=== PATIENT | female | born 1950 | race Caucasian/White ===

== ENCOUNTER → 2017-11-29 10:44 | Outpatient (CLI) | payer MEDICARE, SELFPAY ==
--- NOTE | 2017-11-29 | DI.MG.S_ITS ---
BILATERAL DIGITAL SCREENING MAMMOGRAM 3D/2D WITH CAD: 11/29/2017 Comparison is made to exams dated: 04/17/2016 mammogram, 04/05/2015 mammogram, and 03/20/2014 mammogram - [facility]. There are scattered fibroglandular elements in both breasts. Current study was also evaluated with a Computer Aided Detection (CAD) system. No significant masses, calcifications, or other findings are seen in either breast. There has been no significant interval change. IMPRESSION: NEGATIVE There is no mammographic evidence of malignancy. A 1 year screening mammogram is recommended.(11/30/2018) This exam was interpreted at Station ID: [id number]. NOTE: For mammograms, a report in lay terms will be sent to the patient. Approximately 15% of breast malignancies will not be visualized mammographically. In the management of a palpable breast mass, a negative mammogram must not discourage biopsy of a clinically suspicious lesion. Electronically Signed By: Bjorn mckinney/chelsie:11/29/2017 11:34:34 letter sent: Normal Exam ACR BI-RADS Category 1: Negative [id number]
== END ==
PROVIDERS: PCP Internal Medicine; Visit Provider Internal Medicine
DX: Z12.31 Encounter for screening mammogram for malignant neoplasm of breast (principal)
CPT/HCPCS: 77063; 77067

== ENCOUNTER → 2018-10-01 08:59 | Outpatient (CLI) | payer OTHER, SELFPAY ==
--- NOTE | 2018-10-01 | DI.US.S_ITS ---
PROCEDURE: US CAROTID DOPPLER BI INDICATIONS: HYPERLIPIDEMIA, UNSPECIFIED TECHNIQUE: Color and pulse Doppler interrogation was performed of both carotid systems, with image documentation and velocity measurements. COMPARISON: None. FINDINGS: Stenosis calculations are based on SRU (Society of Radiologists in Ultrasound) criteria. Right side: Brachial blood pressure: 127/78 mm Hg. Common carotid artery peak systolic velocity: 65 cm/sec. Internal carotid artery peak systolic velocity: 80 cm/sec. Internal carotid artery end diastolic velocity: 36 cm/sec. External carotid artery peak systolic velocity: 97 cm/sec. ICA/CCA peak systolic ratio: 1.2. Miller scale imaging description: Mild plaque at the bifurcation Percent internal carotid artery stenosis: Less than 50%. Vertebral artery: Flow direction is antegrade. Left side: Brachial blood pressure: 119/83 mm Hg. Common carotid artery peak systolic velocity: 78 cm/sec. Internal carotid artery peak systolic velocity: 85 cm/sec. Internal carotid artery end diastolic velocity: 37 cm/sec. External carotid artery peak systolic velocity: 90 cm/sec. ICA/CCA peak systolic ratio: 1.1. Miller scale imaging description: Mild plaque in the bifurcation Percent internal carotid artery stenosis: Less than 50%. Vertebral artery: Flow direction is antegrade. IMPRESSION: Bilateral less than 50% ICA stenoses. Dictated by: Otoniel Guerrero M.D. on 10/01/2018 at 13:11 Approved by: Otoniel Guerrero M.D. on 10/01/2018 at 13:12
--- NOTE | 2018-10-01 | DI.US.S_ITS ---
PROCEDURE: US ARTERIAL DUPLEX LE BI INDICATIONS: HYPERLIPIDEMIA TECHNIQUE: Color and pulse Doppler interrogation was performed of both lower extremity arterial systems, with image documentation. COMPARISON: None. FINDINGS: Right lower extremity: Common femoral artery: 98 cm/sec, with triphasic flow. Deep femoral artery: 66 cm/sec, with triphasic flow. Proximal superficial femoral artery: 98 cm/sec, with triphasic flow. Mid superficial femoral artery: 75 cm/sec, with triphasic flow. Distal superficial femoral artery: 58 cm/sec, with triphasic flow. Popliteal artery: 49-50 cm/sec, with triphasic flow. Posterior tibial artery: 55-61 cm/sec, with triphasic flow. Anterior tibial artery/dorsalis pedis: 53-56 cm/sec, with triphasic flow. Miller-scale imaging description: Mild plaquing in common femoral artery. Left lower extremity: Common femoral artery: 115 cm/sec, with triphasic flow. Deep femoral artery: 58 cm/sec, with triphasic flow. Proximal superficial femoral artery: 82 cm/sec, with triphasic flow. Mid superficial femoral artery: Please see cm/sec, with triphasic flow. Distal superficial femoral artery: 60 cm/sec, with triphasic flow. Popliteal artery: 46-57 cm/sec, with triphasic flow. Posterior tibial artery: 47-72 cm/sec, with triphasic flow. Anterior tibial artery/dorsalis pedis: 61-68 cm/sec, with triphasic flow. Miller-scale imaging description: Minimal plaquing. IMPRESSION: No hemodynamic significant stenosis in lower extremity arteries. Dictated by: Dev Ernst M.D. on 10/01/2018 at 15:59 Approved by: Dev Ernst M.D. on 10/01/2018 at 16:03
[2018-10-01 11:07] LABS: Add Manual Diff / Slide Review NO; Basophils Absolute Auto 0 /uL (0-100); Basophils Percent Auto 0.9 % (0-2); Eosinophils Absolute Auto 100 /uL (0-450); Eosinophils Percent Auto 2.4 % (2-4); Hemoglobin 14.3 g/dL (12.0-16.0); Lymphocytes Absolute Auto 900 /uL (1100-4500); Lymphocytes Percent Auto 17.2 % (25-40); Mean Corpuscular HGB Conc 33.1 % (30-36); Mean Corpuscular Hemoglobin 28.9 PG (26-34); Mean Corpuscular Volume 87.3 fL (80-100); Monocytes Absolute Auto 400 /uL (0-900); Monocytes Percent Auto 7.2 % (3-14); Neutrophils Absolute Auto 3900 /uL (1500-7000); Neutrophils Percent Auto 72.3 % (50-75); Platelet Count 257 X10^3/uL (150-400); Red Blood Cell Count 4.93 X10^6/uL (4.0-5.2); Red Cell Distribution Width 14.5 % (11.6-14.8); White Blood Cell Count 5.4 X10^3/uL (4.5-11.0)
[2018-10-01 11:41] LABS: Cholesterol 166 mg/dL (140-199); HDL Cholesterol 75 mg/dL (40-60); LDL Cholesterol Calculated 78 mg/dL (<100); Triglycerides 66 mg/dL (35-150)
[2018-10-01 12:22] LABS: Thyroid Stimulating Hormone 0.91 uIU/mL (0.47-4.68)
== END ==
PROVIDERS: PCP Internal Medicine; Visit Provider Student in an Organized Health Care Education/Training Program
DX: I65.23 Occlusion and stenosis of bilateral carotid arteries (principal); E78.5 Hyperlipidemia, unspecified; E03.9 Hypothyroidism, unspecified; I10 Essential (primary) hypertension
CPT/HCPCS: 36415; 80061; 84443; 85025; 93880; 93925

== ENCOUNTER → 2018-12-02 11:09 | Outpatient (CLI) | payer OTHER, SELFPAY ==
--- NOTE | 2018-12-02 | DI.MG.S_ITS ---
BILATERAL DIGITAL SCREENING MAMMOGRAM 3D/2D WITH CAD: 12/02/2018 CLINICAL: Routine screening. Comparison is made to exams dated: 11/29/2017 mammogram - [facility], 04/17/2016 mammogram, and 04/05/2015 mammogram - [facility]. There are scattered fibroglandular elements in both breasts. Current study was also evaluated with a Computer Aided Detection (CAD) system. No significant masses, calcifications, or other findings are seen in either breast. There has been no significant interval change. IMPRESSION: NEGATIVE There is no mammographic evidence of malignancy. A 1 year screening mammogram is recommended. This exam was interpreted at Station ID: [id number]. NOTE: For mammograms, a report in lay terms will be sent to the patient. Approximately 15% of breast malignancies will not be visualized mammographically. In the management of a palpable breast mass, a negative mammogram must not discourage biopsy of a clinically suspicious lesion. Electronically Signed By: Conrad weber/chelsie:12/02/2018 11:40:03 copy to: Irma Resendiz letter sent: Normal Exam ACR BI-RADS Category 1: Negative [id number]
== END ==
PROVIDERS: PCP Student in an Organized Health Care Education/Training Program; Visit Provider Student in an Organized Health Care Education/Training Program
DX: Z12.31 Encounter for screening mammogram for malignant neoplasm of breast (principal)
CPT/HCPCS: 77063; 77067

== ENCOUNTER 2019-05-09 14:30 | Outpatient (RCR) | payer OTHER, SELFPAY ==
--- NOTE | 2019-05-01 13:51 | ST.OPIE ---
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 She has experienced memory decline since 2017. She is being followed by Dr. Calvin in Neurology who has diagnosed her with mild cognitive impairment. Brain MRI from 01/20 revealed small chronic lacunar infarct in the right posterior morgan radiata and mild/moderate microvascular change in the white matter. Most recently, she had an episode of word finding difficulty and difficulty forming sentences which lasted ~ 20 minutes, but has since resolved and not recurred. She currently takes Donepezil, 10 mg daily for memory. [place] Language Language(s) Spoken in the [facility] [place] Occupational Status Occupation Status Retired Violinist Previous Therapy Previous Speech-Language Therapy No Oral Motor Examination Oral Motor Exam Completed No Subjective Subjective Courtney arrived on time accompanied by her who was not present during the evaluation per her request. - Formal Assessment Standardized Test Cognitive Linguistic Quick Test+ Administration Complete Results The CLQT+ is an individually administered criterion- referenced test designed to gain information about five cognitive domains (attention, memory, language, executive functions, and visuospatial skills) in adults with known or suspected neurological dysfunction. The following impairment severity ratings were obtained from testing: Attention - mild impairment Memory - moderate impairment Executive Functions - severe impairment Language - no impairment, within normal limits Composite Severity Rating - moderate impairment - Cognition Cognitive Assessment Cognitive Assessment Courtney scored 7 out of 8 possible points on the Personal Facts task. She incorrectly stated her age as 69. She scored 12 out of 12 possible points on Symbol cancellation task. During confrontation naming, she scored 10 out of 10 possible points. On the Clock Drawing task, she scored 11 out of 13 points. She lost two points for incorrect hand placement. On the Story Retelling task, she scored 9 out of 10 possible points. She had difficulty connecting alternating shapes in increasing size during the Symbol Trails tasks, scoring 3 out of 10 possible points. She scored 6 out of 9 possible points on Generative Naming. During the Design Memory task, she scored 2 out of 6 possible points. She was unable to complete either maze during the Mazes task, scoring 0 out of 8 possible points. On both mazes, she went down an incorrect path and was unable to back track demonstrating poor planning, foresight and mental flexibility. Before running out of time, she stated I can 't do this. Lastly, she scored 6 out of 13 on the Design Generation task with 1 copied design, 2 perseverated designs and 2 designs with greater or less than four lines. - Memory - Findings Cognitive/Memory Impressions Courtney presents with moderate cognitive impairments with deficits in attention, memory, executive functions and visuospatial skills with preserved language function aside from the episode of word finding difficulty mentioned above. She communicated with me effectively with no obvious word finding difficulty in conversation or during naming. Daily activities are largely unaffected per patient report; however, her reports she has difficulty planning and following plots on television shows. She drives, manages her medication with a pill box and cooks without difficulty. Her manages finances. Recommendations Recommendations Courtney was unable to state specific goals for therapy, but reports she would like help with improving her memory . She currently uses some external memory aids such as a pill box and grocery list, but she lost her calendar and relies on her to remember appointments. She also has difficulty remembering her medical history. She would benefit from cognitive rehabilitation with a focus on preservation of current level of function and compensation for deficits in order to improve daily functioning including general tasks and demands, self care and interpersonal interactions and relationships. Treatment Goals Short Term Goals Courtney will complete a functional cognitive rating scale in order to assist in evaluation of impact of current function on daily activities and participation as well as assist in goal planning. Courtney will demonstrate improved planning skills by identifying the time, materials, and location of an activity and organizing the plan into sequenced steps with out assistance. Courtney will demonstrate improved memory skills and use of strategies through implementation of external and internal memory aids for recalling functional information such as appointments, daily activities , conversations and medical history. Chcf Goals Courtney will report improvements in cognitive function and it's effect on daily activities and participation as measured by a functional cognitive rating scale. Total Time Full Evaluation Time 50
--- NOTE | 2019-05-09 15:46 | ST.OPTN ---
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 Treatment Note Start: 05/01/19 14:58 Freq: Status: Active Protocol: Document 05/09/19 15:38 TLC (Rec: 05/09/19 15:46 TLC [id number]) Speech Pathology Treatment Note Session Time Visit Start Time 14:30 Visit Stop Time 15:15 Total Visit Minutes 45 Visit Information Visit Number 2 Plan of Care Dates 05/01/19-07/30/19 Insurance Information [employer] Medicare Setting Treatment Setting Outpatient Care Visit Type Note Type Treatment Note Next Note Type Next Note Type Treatment Note General Information General Information 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 She has experienced memory decline since 2017. She is being followed by Dr. Calvin in Neurology who has diagnosed her with mild cognitive impairment. Brain MRI from 01/20 revealed small chronic lacunar infarct in the right posterior morgan radiata and mild/moderate microvascular change in the white matter. Most recently, she had an episode of word finding difficulty and difficulty forming sentences which lasted ~ 20 minutes, but has since resolved and not recurred. She currently takes Donepezil, 10 mg daily for memory. 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 Subjective Identification Type Name Observations/Patient Presentation Courtney arrived on time accompanied by her who was not present during the session. Chief Complaint(s) Cognitive Rehab Expectation/Goals: Patient Goals Unable to state goals, doesn't feel it is a big problem Objective Short Term Goals Courtney will complete a functional cognitive rating scale in order to assist in evaluation of impact of current function on daily activities and participation as well as assist in goal planning. Courtney will demonstrate improved planning skills by identifying the time, materials, and location of an activity and organizing the plan into sequenced steps with out assistance. Courtney will demonstrate improved memory skills and use of strategies through implementation of external and internal memory aids for recalling functional information such as appointments, daily activities , conversations and medical history. Shelter Goals Courtney will report improvements in cognitive function and it's effect on daily activities and participation as measured by a functional cognitive rating scale. Treatment Activities Completed the functional cognitive rating scale. Courtney demonstrates decreased insight into deficits rating all activities as fairly easy to do or can do with ease. Upon further discussion, she acknowledges memory impairments but does not feel they interfere with her daily activities or safety . I encouraged her to have a conversation with her regarding his view on the impact of her deficits. I provided verbal education regarding concern for safety given the severity ratings identified on the testing. She had significant difficulty completing tasks for alternating attention, requiring many repetitions. She demonstrated difficulty with topic maintenance in conversation, bringing up an unrelated topic after a serious discussion about her impairments. Assessment Patient Response to Treatment Poor Rehab Potential Poor Impairments Identified Cognitive-Linguistic Skills Assessment of Improvement Poor rehab potential given limited insight into deficits, despite my recommendation to continue with therapy given dx of cognitive impairment. Recommended she discuss results with her and they make a decision together about continuing therapy. Patient/Caregiver Understanding Fair Plan Amount of Therapy Recommended 2-3 Months Frequency of Treatment Once a Week Therapy Recommendations Continue with Current Program
--- NOTE | 2019-05-16 14:57 | ST.OPDS ---
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 She has experienced memory decline since 2016. She is being followed by Dr. Calvin in Neurology who has diagnosed her with mild cognitive impairment. Brain MRI from 01/20 revealed small chronic lacunar infarct in the right posterior morgan radiata and mild/moderate microvascular change in the white matter. Most recently, she had an episode of word finding difficulty and difficulty forming sentences which lasted ~ 20 minutes, but has since resolved and not recurred. She currently takes Donepezil, 10 mg daily for memory. 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 Subjective Observations/Patient Presentation Courtney requested to be discharged from speech therapy . Courtney has not scheduled any more appointments and does not plan on returning to speech therapy, as she thinks she no longer needs it. Chief Complaint(s) Cognitive Rehab Expectation/Goals: Patient Goals Unable to state goals, doesn't feel it is a big problem Objective Short Term Goals Courtney will complete a functional cognitive rating scale in order to assist in evaluation of impact of current function on daily activities and participation as well as assist in goal planning. -GOAL NOT MET; DISCHARGE Courtney will demonstrate improved planning skills by identifying the time, materials, and location of an activity and organizing the plan into sequenced steps with out assistance. -GOAL NOT MET ; DISCHARGE Courtney will demonstrate improved memory skills and use of strategies through implementation of external and internal memory aids for recalling functional information such as appointments, daily activities , conversations and medical history. -GOAL NOT MET; DISCHARGE Correction Goals Courtney will report improvements in cognitive function and it's effect on daily activities and participation as measured by a functional cognitive rating scale. -GOAL NOT MET; DISCHARGE Assessment Patient Response to Treatment Poor Rehab Potential Poor Impairments Identified Cognitive-Linguistic Skills Assessment of Improvement Previous treatment note stated : Poor rehab potential given limited insight into deficits, despite my recommendation to continue with therapy given dx of cognitive impairment. Recommended she discuss results with her and they make a decision together about continuing therapy. Plan Amount of Therapy Recommended No Further Therapy Frequency of Treatment No Further Therapy Therapy Recommendations Discharge from Speech Therapy Comment Patient requested to be discharged from speech therapy .
== END 2019-05-21 08:40 ==
LOC: SP 14:30
PROVIDERS: PCP Student in an Organized Health Care Education/Training Program; Referring Provider Psychiatry & Neurology Neurology; Visit Provider Psychiatry & Neurology Neurology
DX: G31.84 Mild cognitive impairment of uncertain or unknown etiology (principal); Z86.73 Personal history of transient ischemic attack (TIA), and cerebral infarction without residual deficits
CPT/HCPCS: 96125; 97129; 97130

== ENCOUNTER → 2019-07-17 17:03 | Outpatient (CLI) | payer OTHER, SELFPAY ==
--- NOTE | 2019-07-17 | DI.RAD.S_ITS ---
PROCEDURE: XR CHEST 2V INDICATIONS: Unspecified Rt Bundle-Branch Block TECHNIQUE: 2 views of the chest were acquired. COMPARISON: None. FINDINGS: Surgical changes and devices: None. Lungs and pleura: Lungs are clear. No pleural effusions or pneumothorax. Mediastinum: Mediastinal contours are normal. Heart size is normal. Bones and chest wall: No suspicious bony abnormalities. Soft tissues appear unremarkable. IMPRESSION: Normal for age, source of current cardiac arrhythmia symptoms is not seen. Dictated by: Willian Knapp M.D. on 07/18/2019 at 8:39 Approved by: Willian Knapp M.D. on 07/18/2019 at 8:39
== END ==
PROVIDERS: PCP Student in an Organized Health Care Education/Training Program; Referring Provider Student in an Organized Health Care Education/Training Program; Visit Provider Student in an Organized Health Care Education/Training Program
DX: I45.10 Unspecified right bundle-branch block (principal)
CPT/HCPCS: 71046

== ENCOUNTER → 2019-07-18 10:59 | Outpatient (ROUT) | payer OTHER, SELFPAY ==
[2019-07-18 11:33] LABS: Troponin I < 0.012 ng/mL (0.01-0.034)
== END ==
PROVIDERS: PCP Student in an Organized Health Care Education/Training Program; Visit Provider Student in an Organized Health Care Education/Training Program
DX: I45.10 Unspecified right bundle-branch block (principal); I48.91 Unspecified atrial fibrillation
CPT/HCPCS: 84484

== ENCOUNTER → 2019-08-15 08:03 | Outpatient (CLI) | payer OTHER, SELFPAY ==
--- NOTE | 2019-08-15 | DI.ECHO.S_ITS ---
[place] [facility]---------+ [facility] +---------+ : : [address] : : : : [id number] : : : : Phone: [phone]+ Echocardiogram Report + + :Name: PAYAM SIMMS Study Date: 08/15/2019 Height: 67 in : :[facility] Weight: 148 lb : : Gender: Female BSA: 1.8 m2 : :: 1950 Age: 68 yrs BP: 132/80 mmHg: :Reason For Study: AFIB,RBBB : : Performed By: Kali Womack : :Referring: ARTHUR MARTELL : + + Interpretation Summary The left ventricle is mildly dilated. The ejection fraction is estimated to be 55-60%. The right ventricle is normal in size and function. There is mild to moderate mitral regurgitation. The ascending aorta is mild-moderately enlarged. Asc Aorta Diam: 4.0 cm Mild atherosclerotic plaque(s) in the aortic arch. Procedure: A two-dimensional transthoracic echocardiogram with color flow and Doppler was performed. The study quality was technically good. There is no prior echocardiogram noted for this patient. The patient was in normal sinus rhythm during the exam. Left Ventricle: There is normal left ventricular wall thickness. The left ventricle is mildly dilated. There is no thrombus. The ejection fraction is estimated to be 55-60%. There are no focal wall motion abnormalities. MV E/A: 1.3 Med Peak E' Noah: 4.9 cm/sec E/E' med: 14.1. Right Ventricle: The right ventricle is normal in size and function. Atria: The left atrium is moderately dilated. The right atrium is moderately dilated. A prominent eustachian valve is noted. The interatrial septum is intact with no evidence for an atrial septal defect. Mitral Valve: The mitral valve leaflets are slightly calcified. There is mild to moderate mitral regurgitation. Aortic Valve: The aortic valve is trileaflet. The aortic valve opens well. There is no aortic valve stenosis. No aortic regurgitation is present. Tricuspid Valve: The tricuspid valve is normal in structure and function. There is trace tricuspid regurgitation. The right ventricular systolic pressure is estimated to be at least 19 mmHg based on an estimated right atrial pressure of 3 mm Hg. Pulmonic Valve: The pulmonic valve is normal in structure and function. There is trace pulmonic regurgitation. Great Vessels: The aortic root is normal size. The ascending aorta is mild- moderately enlarged. Mild atherosclerotic plaque(s) in the aortic arch. The pulmonary artery is normal size. The IVC is of normal diameter and collapses greater than 50% with a sniff. This suggests a low right atrial pressure of 3 mm Hg. Pericardium/ Pleura There is no pericardial effusion. There is no pleural effusion. MMode/2D Measurements & Calculations LVIDd: 5.5 cm LVOT diam: 2.3 cm LVIDs: 3.4 cm Ao root diam: 3.1 cm FS: 38.5 % asc Aorta Diam: 4.0 cm EPSS: 0.14 cm Ao Arch Diam (Prox Trans): 2.6 cm IVSd: 1.0 cm LVPWd: 0.99 cm LV pulliam. diameter/BSA (cm/m^2): 3.1 LV sys. diameter/BSA (cm/m^2): 1.9 LA dimension: 3.8 cm RA long axis: 5.4 cm LA A2 area: 30.7 cm2 RA area: 22.0 cm2 LA A4 area: 27.8 cm2 RA vol: 75.6 ml LA length (vol): 6.9 cm RA : 42.5 ml/m2 LA vol: 105.1 ml IVC diam: 2.0 cm LA vol index: 59.1 ml/m2 TAPSE: 2.0 cm Doppler Measurements & Calculations Ao V2 max: 144.0 cm/sec LVOT Max Noah: 109.9 cm/sec Ao V2 mean: 104.6 cm/sec LV V1 max P.8 mmHg Ao max P.3 mmHg LV V1 VTI: 25.5 cm Ao mean P.8 mmHg PREETHI(I,D): 3.4 cm2 Ao V2 VTI: 30.3 cm PREETHI(V,D): 3.1 cm2 sev ratio: 0.84 PREETHI indexed to BSA (cm^2/m^2): 1.9 MV E max noah: 69.7 cm/sec TR max noah: 199.8 cm/sec MV A max noah: 52.2 cm/sec TR max P.0 mmHg MV E/A: 1.3 PA V2 max: 81.9 cm/sec Med Peak E' Noah: 4.9 cm/sec PA V2 mean: 65.4 cm/sec E/E' med: 14.1 PA mean P.8 mmHg Lat Peak E' Noah: 7.8 cm/sec PA pr(Accel): 20.8 mmHg E/E' lat: 8.9 E/e' average: 11.5 MV dec time: 0.18 sec SV(LVOT): 104.2 ml Reading Physician:03:59 PM
== END ==
PROVIDERS: PCP Student in an Organized Health Care Education/Training Program; Referring Provider Student in an Organized Health Care Education/Training Program; Visit Provider Student in an Organized Health Care Education/Training Program
DX: I34.0 Nonrheumatic mitral (valve) insufficiency (principal); I70.0 Atherosclerosis of aorta; I48.91 Unspecified atrial fibrillation; I45.10 Unspecified right bundle-branch block
CPT/HCPCS: 93306

== ENCOUNTER → 2019-10-10 11:15 | Outpatient (CLI) | payer OTHER, SELFPAY ==
[2019-10-11 05:59] LABS: COVID19 Sendout Not Detected (Not Detect)
== END ==
PROVIDERS: PCP Student in an Organized Health Care Education/Training Program; Visit Provider Physician Assistant
DX: Z11.59 Encounter for screening for other viral diseases (principal)
CPT/HCPCS: 87635

== ENCOUNTER → 2019-10-13 10:41 | Outpatient (CLI) | payer OTHER, SELFPAY ==
--- NOTE | 2019-10-13 17:58 | DI.NM.S_ITS ---
DATE OF SERVICE: 10/13/2019 PROCEDURE: Exercise perfusion study. INDICATION: Paroxysmal AFib with underlying hypertension, right bundle branch block. RADIOPHARMACEUTICAL: 30.6 millicurie technetium-99m Myoview IV was injected at stress and 10.4 millicurie technetium-99m Myoview IV was injected at rest. CARDIAC STRESS: The patient underwent exercise perfusion study under the supervision of an attending staff. She walked on Yeison protocol for 7 minutes 45 seconds, achieved 94 percent of target heart rate, normal blood pressure response. Baseline EKG revealed sinus rhythm with partial right bundle branch block. During stress, there were no convincing ischemic changes. There were nonspecific ST changes. The patient also developed frequent PVCs and occasional ventricular couplets without any ventricular tachycardia. It was monomorphic PVCs. No significant anginal symptoms. RAW DATA: Breast shadow was seen. GATED STUDY: Stress LV ejection fraction is 74 percent and resting LV ejection fraction is 74 percent. Resting LV end-diastolic volume 128 mL. No transient ischemic dilatation. TID ratio 0.94, which is within normal limits. No obvious wall motion abnormalities seen. Lung/heart ratio 0.25, which is within normal limits. MYOCARDIAL PERFUSION: Stress supine images revealed a small to moderate-sized, moderately decreased perfusion of distal anterior wall, extending into the anterior apex, which got resolved during prone images suggestive of breast tissue attenuation artifact. CONCLUSION: I will call this study likely a normal myocardial perfusion study with evidence of breast tissue attenuation artifact, which got improved during prone images. Normal hemodynamic response. The patient achieved functional aerobic impairment of minus 7 percent. Fair exercise tolerance. Premature ventricular contractions during exercise without any sustained ventricular tachycardia. As far as perfusion scan is concerned, this is a low-risk myocardial perfusion scan. Courtney Barahona - CORY/britany/lauryn doc#: [id number]/job#: [id number] dd: 10/13/2019 17:05:00 dt: 10/13/2019 17:35:00 DICTATING MD/COPIES TO: Chelsy Torres MD COPIES MNE: CHANDNI;
== END ==
PROVIDERS: PCP Student in an Organized Health Care Education/Training Program; Referring Provider Nurse Practitioner; Visit Provider Nurse Practitioner
DX: I45.10 Unspecified right bundle-branch block (principal); I48.0 Paroxysmal atrial fibrillation; I10 Essential (primary) hypertension
CPT/HCPCS: 78452; 93017; A9502

== ENCOUNTER → 2019-12-04 10:53 | Outpatient (CLI) | payer OTHER, SELFPAY ==
--- NOTE | 2019-12-04 | DI.MG.S_ITS ---
BILATERAL DIGITAL SCREENING MAMMOGRAM 3D/2D WITH CAD: 12/04/2019 CLINICAL: Routine screening. Comparison is made to exams dated: 12/02/2018 mammogram, 11/29/2017 mammogram - [facility], and 04/05/2015 mammogram - [facility]. There are scattered fibroglandular elements in both breasts. Current study was also evaluated with a Computer Aided Detection (CAD) system. No significant masses, calcifications, or other findings are seen in either breast. There has been no significant interval change. IMPRESSION: NEGATIVE There is no mammographic evidence of malignancy. A 1 year screening mammogram is recommended. This exam was interpreted at Station ID: [id number]. NOTE: For mammograms, a report in lay terms will be sent to the patient. Approximately 15% of breast malignancies will not be visualized mammographically. In the management of a palpable breast mass, a negative mammogram must not discourage biopsy of a clinically suspicious lesion. Electronically Signed By: Jose farooq/chelsie:12/04/2019 16:23:18 copy to: Irma Resendiz letter sent: Normal Exam ACR BI-RADS Category 1: Negative [id number]
== END ==
PROVIDERS: PCP Student in an Organized Health Care Education/Training Program; Referring Provider Student in an Organized Health Care Education/Training Program; Visit Provider Student in an Organized Health Care Education/Training Program
DX: Z12.31 Encounter for screening mammogram for malignant neoplasm of breast (principal)
CPT/HCPCS: 77063; 77067

== ENCOUNTER 2020-01-13 19:08 | Observation (INO) | payer OTHER, SELFPAY ==
[2020-01-13 19:10] VITALS: BP 132/84; PULSE 47; RESP 18; TEMP 36.6; O2SAT 98
--- NOTE | 2020-01-13 19:14 | DI.CT.S_ITS ---
PROCEDURE: CT STROKE INDICATIONS: Stroke TECHNIQUE: Noncontrast 4.5 mm thick angled axial sections acquired from the foramen magnum to the vertex, with coronal reformats. For radiation dose reduction, the following was used: automated exposure control, adjustment of mA and/or kV according to patient size. COMPARISON: None. FINDINGS: Image quality: Excellent. CSF spaces: Basal cisterns are patent. No extra-axial fluid collections. The ventricles are symmetric in size and shape. Brain: No intracranial bleeds or masses. There is cerebral volume loss for age, with resultant ventricular and sulcal prominence. There are periventricular and deep white matter chronic small vessel ischemic changes. There is intracranial internal carotid artery atherosclerosis. Skull and face: Calvarium and visualized facial bones appear intact, without suspicious lesions. Sinuses: Visualized sinuses and mastoids are clear. IMPRESSION: 1. No acute intracranial process. The above findings were discussed with Dr. Priyanka Magdaleno on 01/13/2020 at 8:03 p.m. This study fulfills neurological imaging criteria for inclusion or exclusion of acute stroke therapies based on available published neurological guidelines. Dictated by: Nancy Duncan M.D. on 01/13/2020 at 20:03 Approved by: Nancy Duncan M.D. on 01/13/2020 at 20:06
[2020-01-13 19:28] LABS: Add Manual Diff / Slide Review NO; Basophils Absolute Auto 100 /uL (0-100); Basophils Percent Auto 0.9 % (0-2); Eosinophils Absolute Auto 200 /uL (0-450); Eosinophils Percent Auto 2.9 % (2-4); Hematocrit 40.8 % (36-46); Hemoglobin 13.8 g/dL (12.0-16.0); Lymphocytes Absolute Auto 1900 /uL (1100-4500); Lymphocytes Percent Auto 29.8 % (25-40); Mean Corpuscular HGB Conc 33.8 % (30-36); Mean Corpuscular Volume 88.7 fL (80-100); Monocytes Absolute Auto 600 /uL (0-900); Monocytes Percent Auto 9.9 % (3-14); Neutrophils Absolute Auto 3500 /uL (1500-7000); Neutrophils Percent Auto 56.5 % (50-75); Platelet Count 265 X10^3/uL (150-400); Red Cell Distribution Width 14.8 % (11.6-14.8); White Blood Cell Count 6.2 X10^3/uL (4.5-11.0)
[2020-01-13 19:34] LABS: INR 1.1 (0.9-1.3); Prothrombin Time 12.5 SECONDS (10.1-12.7)
--- NOTE | 2020-01-13 19:34 | PC.NURSE ---
spouse c/o confusion,trouble speaking,unsteady gait and memory loss.She was confused to place when I saw her and had some vision loss.These symptoms resolved spontaneously in approx. 4 minutes.
[2020-01-13 19:37] LABS: PTT Partial Thromboplastin Tim 37 SECONDS (26.4-36.2)
[2020-01-13 19:49] LABS: Alanine Aminotransferase 22 IU/L (<35); Albumin 4.4 g/dL (3.5-5.0); Albumin Globulin Ratio 1.7 (1.0-2.8); Alkaline Phosphatase 54 U/L (38-126); Aspartate Aminotransferase 27 IU/L (14-36); BUN Creatinine Ratio 18.5 (6-22); Bilirubin Total 0.6 mg/dL (0.2-1.3); Blood Urea Nitrogen 12 mg/dL (7-17); Calcium 9.1 mg/dL (8.4-10.2); Carbon Dioxide 29 mmol/L (22-32); Chloride 100 mmol/L (98-107); Estimated Glomerular Filt Rate > 60.0 mL/min (>60); Ethanol (ETOH) 212 mg/dL; Globulin 2.6 g/dL (1.7-4.1); Glucose 96 mg/dL (80-110); HEMOLYSIS < 15 (0-50); Potassium 3.5 mmol/L (3.4-5.1); Sodium 137 mmol/L (137-145)
[2020-01-13 19:54] LABS: Creatine Kinase 72 U/L (30-135); Lipase 90 U/L (23-300)
[2020-01-13 19:55] VITALS: BP 118/71; PULSE 50; RESP 16; O2SAT 99
[2020-01-13 20:07] LABS: Troponin I < 0.012 ng/mL (0.01-0.034)
--- NOTE | 2020-01-13 20:34 | PC.NURSE ---
She is now at her baseline mentally per her spouse and her.Speech clear,alert and oriented to time,place date and person.
--- NOTE | 2020-01-13 20:43 | ED.NEUROSD ---
HPI - Neuro Symptoms/Deficit General Chief Complaint: Neuro Symptoms/Deficit Stated Complaint: POSSIBLE STROKE Time Seen by Provider: 01/13/20 19:08 Source: patient and family Mode of arrival: Wheelchair Limitations: altered mental status History of Present Illness HPI Narrative: With a history of atherosclerotic disease, memory loss, prior TIAs x2 currently on Pradaxa, hyperthyroidism and hyperlipidemia presents with stroke-like symptoms. Symptoms began 20 minutes prior to arrival in the emergency room and last known well was at 5:30 p.m.. Symptoms rapidly resolved once she was in the emergency department. Initial symptoms included increased confusion, difficulty with word-finding and completing sentences and global weakness. Related Data Home Medications Medication Instructions Recorded Confirmed atorvastatin 20 mg PO DAILY 01/13/20 01/13/20 dabigatran etexilate [Pradaxa] 75 mg PO 01/13/20 donepezil 10 mg PO DAILY 01/13/20 01/13/20 levothyroxine 75 mcg PO DAILY 01/13/20 01/13/20 metoprolol succinate 25 mg PO DAILY 01/13/20 01/13/20 triamterene-hydrochlorothiazid See Rx Instructions .ROUTE .COMPLEX 01/13/20 01/13/20 Review of Systems Review of Systems Narrative: Suspected increased alcohol use Pertinent positive and negative findings as per HPI Remainder of review of systems is otherwise unremarkable for Constitutional: Fevers, chills, weakness ENT: No sore throat, neck pain, ear pain CV: Chest pain, palpitations, dyspnea on exertion Respiratory: Cough, wheeze, dyspnea GI: Nausea, vomiting, diarrhea, change in bowel habits, black or bloody stools : Dysuria, hematuria, flank pain Skin: Rashes, nonhealing lesions Patient History Medical History (Updated 01/13/20 @ 21:03 by Priyanka Magdaleno MD) ASCVD (arteriosclerotic cardiovascular disease) (Acute) Hyperlipidemia (Acute) Hypertension (Acute) Memory dysfunction (Acute) TIA (transient ischemic attack) (Acute) Social History Smoking Status: Never smoker Smoking Status: Never smoker alcohol intake frequency: 0-2 drinks per day Substance Use Type: does not use Exam Narrative Exam Narrative: General: Healthy appearing, in no acute distress. Well-nourished well-developed HEENT: Moist mucous membranes, normal sclera with reactive pupils, Neck: No JVD, supple Respiratory: Lungs are clear to auscultation, no wheezing no rales no rhonchi. Full and symmetrical air movement Cardiac: Regular rate and rhythm no murmurs no bruits Abdomen: Soft nontender good bowel tones, no flank pain Skin: Warm and dry, no rashes Neurologic: Grossly neurologically intact with no obvious asymmetries or abnormalities. Question of mild confusion but feels she is returned to baseline Extremities: No trauma, well perfused Psych: Cooperative, appropriate insight and affect NIH=0 Initial Vital Signs Initial Vital Signs: Vital Signs Temperature 98 F 01/13/20 19:10 Pulse Rate 47 L 01/13/20 19:10 Respiratory Rate 18 01/13/20 19:10 Blood Pressure 132/84 01/13/20 19:10 Pulse Oximetry 98 01/13/20 19:10 Course Orders Ordered: ED Orders 01/13/20 19:14 CT Stroke Stat 01/13/20 19:15 Complete Blood Count AUTO DIFF Stat Comprehensive Metabolic Panel Stat Ethanol (ETOH) Stat Lipase Stat Partial Thromboplastin Time Stat Prothrombin Time INR Stat Troponin & CK Cardiac Panel Stat 01/13/20 19:32 EKG-12 Lead Stat 01/13/20 21:01 COVID19 Stat Lorazepam (Ativan) 1 mg PO Q2HR PRN PRN Reason: Alcohol Withdrawal Vital Signs Vital signs: Vital Signs - 8 hr 01/13/20 19:10 01/13/20 19:55 Temperature 98 F Pulse Rate 47 L 50 L Respiratory Rate 18 16 Blood Pressure 132/84 118/71 Pulse Oximetry 98 99 MDM - Neuro Symptoms/Deficit Medical Records Attestation: I reviewed the patient's medical records. Lab Data Attestation: I reviewed the patient's lab results. Lab results narrative: Alcohol level 212 Result diagrams: 01/13/20 19:15 01/13/20 19:15 Labs: Lab Results 01/13/20 01/13/20 01/13/20 Range/Units 19:15 19:15 19:15 WBC 6.2 (4.5-11.0) X10^3/uL RBC 4.60 (4.0-5.2) X10^6/uL Hgb 13.8 (12.0-16.0) g/dL Hct 40.8 (36-46) % MCV 88.7 (80-100) fL MCH 30.0 (26-34) PG MCHC 33.8 (30-36) % RDW 14.8 (11.6-14.8) % Plt Count 265 (150-400) X10^3/uL Neut % (Auto) 56.5 (50-75) % Lymph % (Auto) 29.8 (25-40) % [place] % (Auto) 9.9 (3-14) % Eos % (Auto) 2.9 (2-4) % Baso % (Auto) 0.9 (0-2) % Neut # (Auto) 3500 (0476-8884) /uL Lymph # (Auto) 1900 (2399-8995) /uL [place] # (Auto) 600 (0-900) /uL Eos # (Auto) 200 (0-450) /uL Baso # (Auto) 100 (0-100) /uL PT 12.5 (10.1-12.7) SECONDS INR 1.1 (0.9-1.3) APTT 37 H (26.4-36.2) SECONDS Sodium 137 (137-145) mmol/L Potassium 3.5 (3.4-5.1) mmol/L Chloride 100 (98-107) mmol/L Carbon Dioxide 29 (22-32) mmol/L BUN 12 (7-17) mg/dL Creatinine 0.65 (0.52-1.04) mg/dL Estimated GFR > 60.0 (>60) mL/min BUN/Creatinine Ratio 18.5 (6-22) Glucose 96 (80-110) mg/dL Calcium 9.1 (8.4-10.2) mg/dL Total Bilirubin 0.6 (0.2-1.3) mg/dL AST 27 (14-36) IU/L ALT 22 (<35) IU/L Alkaline Phosphatase 54 (38-126) U/L Total Creatine Kinase (30-135) U/L CK-MB (CK-2) CK-MB (CK-2) Rel Index Troponin I (0.01-0.034) ng/mL Total Protein 7.0 (6.3-8.2) g/dL Albumin 4.4 (3.5-5.0) g/dL Globulin 2.6 (1.7-4.1) g/dL Albumin/Globulin Ratio 1.7 (1.0-2.8) Lipase (23-300) U/L Ethyl Alcohol 212 H ( - 10) mg/dL 01/13/20 Range/Units 19:15 WBC (4.5-11.0) X10^3/uL RBC (4.0-5.2) X10^6/uL Hgb (12.0-16.0) g/dL Hct (36-46) % MCV (80-100) fL MCH (26-34) PG MCHC (30-36) % RDW (11.6-14.8) % Plt Count (150-400) X10^3/uL Neut % (Auto) (50-75) % Lymph % (Auto) (25-40) % [place] % (Auto) (3-14) % Eos % (Auto) (2-4) % Baso % (Auto) (0-2) % Neut # (Auto) (7463-6782) /uL Lymph # (Auto) (7496-3150) /uL [place] # (Auto) (0-900) /uL Eos # (Auto) (0-450) /uL Baso # (Auto) (0-100) /uL PT (10.1-12.7) SECONDS INR (0.9-1.3) APTT (26.4-36.2) SECONDS Sodium (137-145) mmol/L Potassium (3.4-5.1) mmol/L Chloride (98-107) mmol/L Carbon Dioxide (22-32) mmol/L BUN (7-17) mg/dL Creatinine (0.52-1.04) mg/dL Estimated GFR (>60) mL/min BUN/Creatinine Ratio (6-22) Glucose (80-110) mg/dL Calcium (8.4-10.2) mg/dL Total Bilirubin (0.2-1.3) mg/dL AST (14-36) IU/L ALT (<35) IU/L Alkaline Phosphatase (38-126) U/L Total Creatine Kinase 72 (30-135) U/L CK-MB (CK-2) TNP CK-MB (CK-2) Rel Index TNP Troponin I < 0.012 (0.01-0.034) ng/mL Total Protein (6.3-8.2) g/dL Albumin (3.5-5.0) g/dL Globulin (1.7-4.1) g/dL Albumin/Globulin Ratio (1.0-2.8) Lipase 90 (23-300) U/L Ethyl Alcohol ( - 10) mg/dL Imaging Data CT scan - head: Radiologist's Impression: FINDINGS: Image quality: Excellent. CSF spaces: Basal cisterns are patent. No extra-axial fluid collections. The ventricles are symmetric in size and shape. Brain: No intracranial bleeds or masses. There is cerebral volume loss for age, with resultant ventricular and sulcal prominence. There are periventricular and deep white matter chronic small vessel ischemic changes. There is intracranial internal carotid artery atherosclerosis. Skull and face: Calvarium and visualized facial bones appear intact, without suspicious lesions. Sinuses: Visualized sinuses and mastoids are clear. IMPRESSION: 1. No acute intracranial process. The above findings were discussed with Dr. Priyanka Magdaleno on 01/13/2020 at 8:03 p.m. ECG Data Attestation: I personally reviewed and interpreted this ECG as follows: Interpretation: Sinus rhythm at a rate of 49, relative bradycardia Partial right bundle branch block, normal axis no acute ischemic changes MDM Narrative Medical decision making narrative: 69-year-old woman with evidence for TIA. Relative bradycardia and currently on metoprolol. CT scan does not suggest large acute infarct or acute abnormalities. Will admit for remainder of stroke workup. Care is reviewed with Dr. Corona. Bridging admission orders are entered. Patient is safe for transfer to the floor Discharge Plan Departure Patient Disposition: Admitted as Observation Clinical Impression: TIA (transient ischemic attack) Alcohol intoxication Qualifiers: Complication of substance-induced condition: uncomplicated Qualified Code(s): F10.920 - Alcohol use, unspecified with intoxication, uncomplicated Referrals: Mariaelena Julio MD [Primary Care Provider] -
[2020-01-13 20:49] VITALS: PULSE 51; O2SAT 97
[2020-01-13 21:24] VITALS: BP 125/75; PULSE 52; O2SAT 99
[2020-01-13 21:30] VITALS: BP 126/86; PULSE 55; RESP 14; TEMP 36.3; O2SAT 100
[2020-01-13 21:57] VITALS: BMI 21.7
[2020-01-13 22:00] LABS: COVID19 -Nasal RAPID Negative (Negative)
--- NOTE | 2020-01-13 22:51 | PC.NURSE ---
Pt arrived to floor from ED @ 2200 Lungs clear, SpO2 97% RA Pt appears anxious, alert /oriented to self/place Some dementia noted, unclear as to date/month HL RFA intact. Pt oriented to room & call system. Call light w/in reach, bed alarm on for pt safety. Awaiting Dr. Corona for orders. Continue w/plan of care.
[2020-01-13 23:30] VITALS: BP 122/75; PULSE 59; RESP 16; TEMP 36.4; O2SAT 100
[2020-01-14] VITALS (7 sets, daily range): BP systolic 104–141; BP diastolic 56–90; PULSE 63–94; RESP 16–20; TEMP 35.7–36.8; O2SAT 95–100; BMI 21.7
--- NOTE | 2020-01-14 | DI.ECHO.S_ITS ---
[facility] +---------+ : : [address] : : : : [place] : : : : [id number] : : : : Phone: [phone]+ Echocardiogram Report + + :Name: PAYAM SIMMS Study Date: 01/14/2020 Height: 67 in : :[facility] Weight: 138 lb : : Gender: Female BSA: 1.7 m2 : :: 1950 Age: 69 yrs BP: 141/90 mmHg: :Reason For Study: TIA : :Ordering Physician: JASBIR, : :ARTHUR Performed By: Iraida Rivera : :Referring: ARTHUR MARTELL : + + Interpretation Summary The left ventricle is normal in size and wall thickness. Left ventricular systolic function appears normal without focal wall motion abnormalities. The ejection fraction is estimated to be 60-65%. LVEF has not changed since prior study. Diastolic parameters suggest probable normal left ventricular diastolic function and normal filling pressures. The right ventricle is normal in size and function. Pulmonary artery pressures cannot be estimated because of the lack of a measurable TR jet velocity but the IVC suggests a CVP of around 8 mmHg. The left atrium is moderately dilated. The right atrium is mildly dilated. There is mild mitral regurgitation. MR has decreased since prior study. There is no other significant valvular heart disease. The ascending aorta is mildly enlarged. No obvious source for TIA. Procedure: A two-dimensional transthoracic echocardiogram with color flow and Doppler was performed. The study quality was technically adequate. Comparison is made with the echocardiogram of 08/15/2019. The patient was in sinus rhythm with heart rates between 59-70 bpm during the exam. The patient had occasional PVCs during the exam. Left Ventricle: The left ventricle is normal in size and wall thickness. Left ventricular systolic function appears normal without focal wall motion abnormalities. The ejection fraction is estimated to be 60-65%. Diastolic parameters suggest probable normal left ventricular diastolic function and normal filling pressures. Right Ventricle: The right ventricle is normal in size and function. Atria: The left atrium is moderately dilated. The right atrium is mildly dilated. There is no Doppler evidence for an interatrial shunt. Mitral Valve: The mitral valve leaflets are slightly calcified. There is mild mitral regurgitation. Aortic Valve: The aortic valve is trileaflet. The aortic valve opens well. There is no aortic valve stenosis. No aortic regurgitation is present. Tricuspid Valve: The tricuspid valve is normal in structure and function. Pulmonary artery pressures cannot be estimated because of the lack of a measurable TR jet velocity but the IVC suggests a CVP of around 8 mmHg. There is mild tricuspid regurgitation. Pulmonic Valve: The pulmonic valve leaflets are thin and pliable; valve motion is normal. There is trace pulmonic regurgitation. There is no other significant valvular heart disease. Great Vessels: The aortic root is normal size. The ascending aorta is mildly enlarged. The IVC is dilated (diameter is greater than 2.1 cm) yet it collapses greater than 50% with a sniff. This suggests a right atrial pressure of 8 mm Hg. Pericardium/ Pleura There is no pericardial effusion. There is no pleural effusion. MMode/2D Measurements & Calculations LVIDd: 5.7 cm LVOT diam: 2.0 cm LVIDs: 3.4 cm Ao root diam: 3.1 cm FS: 40.1 % asc Aorta Diam: 3.6 cm EPSS: 0.46 cm Ao Arch Diam (Prox Trans): 2.7 cm IVSd: 0.94 cm LVPWd: 0.88 cm LV pulliam. diameter/BSA (cm/m^2): 3.3 LV sys. diameter/BSA (cm/m^2): 2.0 LA A2 area: 24.9 cm2 RA long axis: 5.4 cm LA A4 area: 26.4 cm2 RA area: 20.6 cm2 LA length (vol): 6.7 cm RA vol: 66.7 ml LA vol: 82.9 ml RA : 38.6 ml/m2 LA vol index: 48.0 ml/m2 IVC diam: 2.1 cm RVD1 (basal): 3.3 cm TAPSE: 2.7 cm Doppler Measurements & Calculations Ao V2 max: 153.0 cm/sec LVOT Max Noah: 113.9 cm/sec Ao V2 mean: 108.6 cm/sec LV V1 max P.2 mmHg Ao max P.4 mmHg LV V1 VTI: 25.9 cm Ao mean P.4 mmHg PREETHI(I,D): 2.5 cm2 Ao V2 VTI: 33.9 cm PREETHI(V,D): 2.4 cm2 sev ratio: 0.76 PREETHI indexed to BSA (cm^2/m^2): 1.4 MV E max noah: 76.4 cm/sec PA V2 max: 94.0 cm/sec MV A max noah: 75.1 cm/sec PA V2 mean: 63.1 cm/sec MV E/A: 1.0 PA mean P.8 mmHg Med Peak E' Noah: 6.3 cm/sec PA pr(Accel): 20.8 mmHg E/E' med: 12.2 Lat Peak E' Noah: 10.8 cm/sec E/E' lat: 7.1 E/e' average: 9.6 MV dec time: 0.21 sec SV(LVOT): 83.9 ml Reading Physician:01:55 PM
--- NOTE | 2020-01-14 | DI.US.S_ITS ---
PROCEDURE: US CAROTID DOPPLER BI INDICATIONS: TRANSCIENT ESCHEMIC ATTACK TECHNIQUE: Color and pulse Doppler interrogation was performed of both carotid systems, with image documentation and velocity measurements. COMPARISON: [facility], US, US CAROTID DOPPLER BI, 10/01/2018, 9:12. [facility], CT, CT STROKE, 01/13/2020, 19:16. [facility], MR, MR STROKE, 01/14/2020, 8:14. FINDINGS: Stenosis calculations are based on SRU (Society of Radiologists in Ultrasound) criteria. The flow velocities and the arterial waveforms are normal within both carotid arterial systems. Atherosclerotic plaque is seen on both sides. The estimated degree of internal carotid artery stenosis is less than 50%. Antegrade flow is confirmed within both vertebral arteries. IMPRESSION: No hemodynamically significant stenosis is seen. No significant change from the prior. Atherosclerotic plaque is noted bilaterally. Dictated by: Alex Garrison M.D. on 01/14/2020 at 10:20 Approved by: Alex Garrison M.D. on 01/14/2020 at 10:21
--- NOTE | 2020-01-14 03:57 | PC.NURSE ---
Pt. declined to have telemetry. Paged Dr. Corona via answering service awaiting call back.
--- NOTE | 2020-01-14 05:16 | PC.NURSE ---
Pt. pulled out her IV access. Adamantly refused to restart her IV line. States I don't want to get poke again. Did not sleep well last night, will cont. POC & monitor.
--- NOTE | 2020-01-14 07:33 | P.HP_ITS ---
History of Present Illness History of Present Illness Date Patient Seen: 01/14/20 Time Patient Seen: 07:33 Chief complaint: POSSIBLE STROKE Narrative: 69 year old female with a history of atherosclerotic disease, memory loss, prior TIAs x2 currently on Pradaxa, hypothyroidism and hyperlipidemia presented overnight with stroke-like symptoms: confusion, difficulty with word finding, completing sentences and global weakness. Symptoms began 20 minutes before arrival to the ED and resolved during her ED stay. ED workup significant for a negative CT scan. EKG showed bradycardia with ventricular rate of 49 and known right bundle-branch block with no ischemic changes. Patient was intoxicated with an ethanol level of 212. She was given Ativan x1. Vital signs included a temperature of 98?, pulse 47, respirations 18, blood pressure 132/84, O2 saturation 98% on room air. She was admitted for observation and the remainder of her stroke workup. She has had an uneventful night and feels back to her baseline.. 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 Alcohol drinks/day: > 2 beers per day >5/day in last 3 mos: no Caffeine use/day: 1 Type of Exercise: walking Exercise Times per Week: daily Guns in home: no Dental Care w/in 6 mos.: yes Sun Exposure: occasionally Fall Risk: no falls in past year Seat Belt Use: yes Smoking Status: former smoker Drug Use: never HIV High Risk Behavior: no Patient History Medical History (Updated 01/13/20 @ 21:03 by Priyanka Magdaleno MD) ASCVD (arteriosclerotic cardiovascular disease) (Acute) Hyperlipidemia (Acute) Hypertension (Acute) Memory dysfunction (Acute) TIA (transient ischemic attack) (Acute) Family & Social History Social History: household members spouse Prior Living Arrangements House Safety & Behavioral: Feels Safe in Current Yes Environment Been Physically Hurt or No Threatened By a Person Suicidal Ideation Description None Tobacco & Substance use: Smoking Status Never smoker alcohol intake current alcohol intake frequency 0-2 drinks per day Substance Use Type does not use Meds Home Medications and Allergies Home Medications Medication Instructions Recorded Confirmed Type atorvastatin 20 mg PO DAILY 01/13/20 01/13/20 History dabigatran etexilate [Pradaxa] 75 mg PO BID 01/13/20 01/13/20 History dabigatran etexilate [Pradaxa] mg PO BID 01/13/20 History donepezil 10 mg PO DAILY 01/13/20 01/13/20 History levothyroxine 75 mcg PO DAILY 01/13/20 01/13/20 History metoprolol succinate 25 mg PO DAILY 01/13/20 01/13/20 History triamterene-hydrochlorothiazid See Rx Instructions .ROUTE .COMPLEX 01/13/20 01/13/20 History Allergies Allergy/AdvReac Type Severity Reaction Status Date / Time No Known Drug Allergies Allergy Verified 01/13/20 21:24 Review of Systems Review of Systems ROS: Yes All systems reviewed with the patient and are negative except as otherwise documented Exam Vital Signs (past 8 hours): Oxygen Delivery Method Room Air Oxygen Flow Rate 0 Narrative Exam Narrative: GENERAL: Alert and oriented, appearing stated age and in no acute distress. HEENT: Head normocephalic/atraumatic. Pupils equal, round, and reactive to light and accomodation. Extraocular muscles intact. Tympanic membranes clear. Nasal mucosa moist, septum midline. Oral mucosa moist, no lesions. Neck soft and supple, no lymphadenopathy. LUNGS: Clear to ausculation bilaterally, no wheezes, rhonchi or rales. CV: Normal S1 and S2 with regular rate and rhythm, no audible murmurs, rubs or gallops. ABDOMEN: Soft, non-tender, non-distended, no organomegaly. Positive bowel sounds. EXTREMITIES: No clubbing, cyanosis, or edema. NEURO: Cranial nerves II through XII grossly intact, no focal deficits. PSYCH: Alert and oriented x 3. SKIN: No concerning lesions. Objective Labs Result Diagrams: 01/13/20 19:15 01/13/20 19:15 Labs: Laboratory Results - last 24 hr 01/13/20 01/13/20 01/13/20 19:15 19:15 19:15 WBC 6.2 RBC 4.60 Hgb 13.8 Hct 40.8 MCV 88.7 MCH 30.0 MCHC 33.8 RDW 14.8 Plt Count 265 Neut % (Auto) 56.5 Lymph % (Auto) 29.8 [place] % (Auto) 9.9 Eos % (Auto) 2.9 Baso % (Auto) 0.9 Neut # (Auto) 3500 Lymph # (Auto) 1900 [place] # (Auto) 600 Eos # (Auto) 200 Baso # (Auto) 100 PT 12.5 INR 1.1 APTT 37 H Sodium 137 Potassium 3.5 Chloride 100 Carbon Dioxide 29 BUN 12 Creatinine 0.65 Estimated GFR > 60.0 BUN/Creatinine Ratio 18.5 Glucose 96 Calcium 9.1 Total Bilirubin 0.6 AST 27 ALT 22 Alkaline Phosphatase 54 Total Creatine Kinase CK-MB (CK-2) CK-MB (CK-2) Rel Index Troponin I Total Protein 7.0 Albumin 4.4 Globulin 2.6 Albumin/Globulin Ratio 1.7 Lipase Ethyl Alcohol 212 H COVID-19 PCR 01/13/20 01/13/20 19:15 21:08 WBC RBC Hgb Hct MCV MCH MCHC RDW Plt Count Neut % (Auto) Lymph % (Auto) [place] % (Auto) Eos % (Auto) Baso % (Auto) Neut # (Auto) Lymph # (Auto) [place] # (Auto) Eos # (Auto) Baso # (Auto) PT INR APTT Sodium Potassium Chloride Carbon Dioxide BUN Creatinine Estimated GFR BUN/Creatinine Ratio Glucose Calcium Total Bilirubin AST ALT Alkaline Phosphatase Total Creatine Kinase 72 CK-MB (CK-2) TNP CK-MB (CK-2) Rel Index TNP Troponin I < 0.012 Total Protein Albumin Globulin Albumin/Globulin Ratio Lipase 90 Ethyl Alcohol COVID-19 PCR Negative Assessment & Plan Assessment & Plan narrative: 1. TIA Plan: Stroke protocol workup today. Will continue Pradaxa. Plan to consult cardiology regarding any recommendations regarding changes in anticoagulation prior to discharge. 2. Atrial fibrillation Plan: Rate controlled on metoprolol and anticoagulated on Pradaxa. Patient has been bradycardic during her stay, will reduce her metoprolol dose from 25 mg to 12.5 mg daily and watch closely. 3. Hyperlipidemia with history atherosclerotic disease Plan: Will increase her atorvastatin from 20 to 80 mg p.o. q.h.s.. 4. Hypertension Plan: Please see #2. Will continue home triamterene/hydrochlorothiazide. 5. History of right bundle-branch block Plan: No new changes, troponins negative, will watch closely on telemetry. 6. Hypothyroidism Plan: Continue levothyroxine. 7. Memory loss Plan: Continue donepezil. 8. Alcohol dependence Plan: [facility] protocol. DVT prophylaxis: On Pradaxa Code: Full COVID: Negative
--- NOTE | 2020-01-14 07:56 | DI.MRI.S_ITS ---
PROCEDURE: MR STROKE Pre- and post-contrast brain MRI, non-contrast brain MR angiogram, pre- and postcontrast neck MR angiogram INDICATIONS: TIA TECHNIQUE: Brain: Noncontrast axial T1 spin echo, axial T2 fast spin echo, sagittal and axial FLAIR, coronal T2 fast spin echo, axial gradient echo, axial diffusion and ADC through the brain. After the administration of contrast, axial 3D VIBE of the cranial vasculature and brain. Brain MRA: Non-contrast 3-D time of flight MR angiogram, with multiple mfkntvp-qwpgfauig-uvycvhvmit (MIP) reformats performed. Neck MRA: Axial and sagittal TruFISP through the neck. Coronal dynamic MR angiogram during administration of contrast in the arterial and venous phases, with 3-dimenstional wthkkyh-nqsyzesgf-vxvdkponir (MIP) reformats constructed from subtraction images. COMPARISON: None. FINDINGS: Image quality: Excellent. BRAIN: CSF spaces: Ventricles are normal in size and shape. Basal cisterns are patent. No extra-axial fluid collections. Brain: No intracranial bleeds or mass effects. Miller-white matter interface is normal. Diffusion weighted images show no acute ischemic insults. There is mild to moderate chronic appearing microvascular atherosclerotic change in the deep white matter of each hemisphere Brainstem appears normal. Normal intravascular flow voids are present. No abnormal intracranial enhancement. Skull and face: Calvarial marrow signal is normal. Orbits appear normal. Sinuses: Sinuses and mastoids are clear. BRAIN MR ANGIOGRAM: Anterior circulation: Intracranial internal carotid arteries are normal in size and enhancement. The flow within the paired anterior cerebral arteries is normal and symmetric. The flow within the middle cerebral arteries is normal and symmetric. The anterior communicating artery is seen. No stenoses, occlusions, or aneurysms. Posterior circulation: The visualized portions of the vertebral arteries demonstrate normal caliber, and join to form a normal appearing basilar artery. The flow within the posterior cerebral arteries is normal and symmetric. No stenoses, occlusions, or aneurysms. NECK MR ANGIOGRAM: Carotids: Great vessels demonstrate a conventional anatomy as they arise from the aortic arch. The origins of the common carotid arteries appear patent. The calibers and courses of both common carotid arteries are normal. The bifurcation regions appear normal bilaterally. The internal carotid arteries demonstrate normal course and caliber. Posterior circulation: The origins of the vertebral arteries appear patent. More superior portions of both vertebral arteries demonstrate normal course and caliber, and join to form a normal appearing basilar artery. Miscellaneous: Subclavian arteries appear patent. Pre-contrast images through the neck show no soft tissue abnormalities. IMPRESSION: BRAIN MRI: [id number]-[id number] microvascular atherosclerotic change in the deep white matter of each hemisphere but no sign of acute or subacute ischemic injury. BRAIN MR ANGIOGRAM: Normal intracranial MR angiogram. NECK MR ANGIOGRAM: Normal cervical MR angiogram. Dictated by: Willian Knapp M.D. on 01/14/2020 at 9:23 Approved by: Willian Knapp M.D. on 01/14/2020 at 9:26
[2020-01-14] MEDS: DABIGATRAN 75 MG CAPSULE PO ×2 (09:46→21:35)
[2020-01-14] MEDS: METOPROLOL ER 25 MG TABLET 12.5 MG PO (09:47)
[2020-01-14] MEDS: FOLIC ACID 1 MG TABLET PO (09:47)
[2020-01-14 09:50] LABS: Magnesium 2.4 mg/dL (1.6-2.3)
[2020-01-14] MEDS: DONEPEZIL 5 MG TABLET 10 MG PO (09:51)
[2020-01-14] MEDS: THIAMINE 100 MG TABLET PO (09:52)
[2020-01-14] MEDS: MULTIVITAMIN 1 TABLET 1 TAB PO (09:52)
[2020-01-14] MEDS: LEVOTHYROXINE 75 MCG TABLET PO (09:59)
[2020-01-14] MEDS: SODIUM CHLORIDE 0.9% FLUSH 10 ML IV ×2 (10:02→21:35)
--- NOTE | 2020-01-14 11:33 | PT.IIE ---
Medical History (Last Updated 01/13/20 @ 20:48 by Priyanka Magdaleno MD) ASCVD (arteriosclerotic cardiovascular disease) (Acute) Hyperlipidemia (Acute) Hypertension (Acute) Memory dysfunction (Acute) TIA (transient ischemic attack) (Acute) Physical Therapy Inpatient Evaluation/Re-Eval M1 PT/OT-IP Prior Functional Status Start: 01/14/20 13:08 Freq: NEEDED Status: Active Protocol: Document 01/14/20 11:33 AB (Rec: 01/14/20 13:28 AB [email or web address]) Medical Review Prior Functional Status Medical History Reviewed Yes Communication able to make needs known Mobility and Gait pt stated that she is independent with all mobilities and ambulation without AD; usually walks up a hill ~ 2 miles daily Social History Household Members spouse Living Arrangements House Number of Floors (Floors) Two Floors Number of Stairs To Enter/Railing? 1 step to enter has 17 steps to TV room with L rail on first 12 steps and R rail on last 5 steps Home Environment Standard Height Toilet,Walk in Shower,Tub/Shower M2 PT-IP Current Condition Start: 01/14/20 13:08 Freq: NEEDED Status: Active Protocol: Document 01/14/20 11:33 AB (Rec: 01/14/20 13:28 AB [email or web address]) Physical Therapy Current Condition Current Condition Evaluation Date 01/14/20 Treatment Diagnosis TIA; difficulty in walking Onset Date 01/13/20 M3 PT-IP Subjective Start: 01/14/20 13:08 Freq: NEEDED Status: Active Protocol: Document 01/14/20 11:33 AB (Rec: 01/14/20 13:28 AB [email or web address]) Subjective Physical Therapy Visit Type Type Initial Evaluation Visit Start Time : Visit Stop Time 12:07 Total Visit Minutes 35 Number of MATERIAL HAULER Visits 0 Physical Therapy Visit Comments Patient Comments pt is agreeable to do PT Therapy Pain Assessment Pain Present Pain Present Denied Pain M4 PT-IP Mobility and Gait Start: 01/14/20 13:08 Freq: NEEDED Status: Active Protocol: Document 01/14/20 11:33 AB (Rec: 01/14/20 13:28 AB [email or web address]) PT-Bed Mobility Assessment Supine to Sit Supine to Sit Independent Scooting Scooting to Edge of Bed Independent PT-Transfer Assessment Sit to and From Stand Sit to and from Stand Standby Assistance Equipment Transfer Assistive Device None,Gait Belt Orthotic/Prosthetic Devices or Brace: No Transfers Transfer Destination Chair Transfer Technique ambulated without AD Transfer Ability Level of Assist Standby Assistance Comments Mobility Comments completed bed mobility independent. pt was able to sit on EOB without LOB. ambulated in room SBA without AD with slight gait deviation and slight LOB but able to catch herself. Tinetti balance assessment conducted. pt agreed to ambulate further and completed ~250 ft without AD towards the stairs SBA. complete up/down steps using L rail only and then R rail only and then without rails and completed with SBA to CGA for safety but pt without LOB. pt ambulated back to her room. agreed to sit up on chair. positioned on chair. informed pt and spouse that no further PT intervention indicated at this time. informed spouse that pt has slight unsteadiness with balance but pt is able to catch and correct. informed nurse regarding d/c from PT and agreed. pt also has h/o ETOH affecting mobility and balance. Gait Assessment Gait Gait Assistance Required: Standby Assistance Distance (Feet) 250 Able to Maintain Weight Bearing Status Yes During Gait Assistive Devices Assistive Device None,Gait Belt Orthotic/Prosthetic Devices or Brace: No Gait Deviations General Gait Pattern Antalgic,Narrow Based Gait Factors Limiting Gait Function Factors Limiting Gait Function Poor Balance,Poor Safety Awareness Stair Climbing Assessment Evaluation Level of Assist On Stairs Standby Assistance,Contact Guard Assistance Devices Stair Climbing Assistive Devices Left Railing,Right Railing Technique/Endurance Stair Climbing Direction Ascend and Descend Stair Climbing Technique Step Over Step Number of Steps Climbed 3 Query Text: Stair Climbing Set # Repetitions (reps) 3 Comments Stair Climbing Comments pls refer to mobility section for details PT-Balance Assessment Sitting Balance and Reactions Static Sitting Balance Ability Normal Dynamic Sitting Balance Ability Normal Standing Balance and Reactions Static Standing Balance Ability Good Dynamic Standing Balance Ability Good Device Used without AD Functional Assessments Functional Tests Tinetti Balance and Gait Assessment bal score: gait score: 12/14 total score Other Functional Tests Performed tinetti balance assessment: : indicates low fall risk M5 PT-IP Objective Assessments Start: 01/14/20 13:08 Freq: NEEDED Status: Active Protocol: Document 01/14/20 11:33 AB (Rec: 01/14/20 13:28 AB [id number]) Orientation Orientation/Cognition Level of Alertness Alert Orientation Name,Situation Memory Description Short Term Impaired,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 Comments pt can be impulsive Gross Range of Motion Lower Extremity ROM Assessment Within Functional Limits Strength Lower Extremity Strength Assessment Within Functional Limits Sensation Assessment Sensation Gross Sensation WNL Muscle Tone Muscle Tone WNL Yes M6 PT-IP Treatment Start: 01/14/20 13:08 Freq: NEEDED Status: Active Protocol: Document 01/14/20 11:33 AB (Rec: 01/14/20 13:28 AB [id number]) Physical Therapy Treatment Education Education Provided Safety M7 PT-IP Assessment and Plan Start: 01/14/20 13:08 Freq: NEEDED Status: Active Protocol: Document 01/14/20 11:33 AB (Rec: 01/14/20 13:28 AB [email or web address]) PT Summary Assessment and Plan Potential Rehabilitation Potential Good Status of Condition at Evaluation Stable Summary Assessment Summary PT eval completed and no further PT intervention indicated at this time. pt has slight gait deviation and decrease standing balance and this is baseline for pt. tinetti score of 26/28 which is a low fall risk. pt can be impulsive and decrease safety awareness. Pt also has ETOH issues contributing to balance . Pt and spouse is aware of d /c PT and agreed. nurse also informed. Frequency of Treatment Frequency Of Treatment Discharge Recommendations To Nursing Amount of Assist Needed Standby Assistance Discharge Recommendations PT Discharge Recommendations Home with Assistance Transportation Needs at Discharge Private Vehicle
--- NOTE | 2020-01-14 11:45 | CM.DANOTE ---
DCP: Case received, EMR reviewed and met with patient. Introduced self and role. Was able to meet with patient, and , Shaggy, who was at bedside. Patient just had an echo. Obtained some information from patient regarding her baseline activity level prior to hospitalization. DCP assessment completed with information currently available. Patient is a 69 year old female who admitted yesterday evening to the care of the hospitalist team. PCP: Dr. Julio Payer: confirmed: [facility]. Patient came to the hospital via private vehicle secondary to having symptoms of confusion, and word finding. According to notes, symptoms resolved when she was in the ER. Her current diagnosis is TIA, but she is being worked up, she is having echo today. Patient has history of memory issues. She is independent as far as her ambulation. Met with patient, she just completed echo, and , Shaggy. She resides here in [place] with her spouse, Shaggy. Patient stated, she walks to [facility] every day, she does not use any DME supplies. P: DCP to continue to follow. She will be working with P.T. She should be able to go home when medically stable and cleared by P.T. Althea Cordova RN/Principal Examiner
--- NOTE | 2020-01-14 14:43 | OT.IP.EVAL ---
Past Medical History (Last Updated 01/13/20 @ 20:48 by Priyanka Magdaleno MD) ASCVD (arteriosclerotic cardiovascular disease) (Acute) Hyperlipidemia (Acute) Hypertension (Acute) Memory dysfunction (Acute) TIA (transient ischemic attack) (Acute) Occupational Therapy Inpatient Evaluation/Re-Eval M1 PT/OT-IP Prior Functional Status Start: 01/14/20 16:21 Freq: NEEDED Status: Active Protocol: Document 01/14/20 16:21 [facility] (Rec: 01/14/20 16:51 [facility] [id number]) Medical Review Prior Functional Status Medical History Reviewed Yes Communication able to make needs known Mobility and Gait pt stated that she is independent with all mobilities and ambulation without AD; usually walks up a hill ~ 2 miles daily Activities of Daily Living and IADL's Pt independent with all ADl's. Pt's states does her bills and finances. 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 Social History Household Members spouse Living Arrangements House Number of Floors (Floors) Two Floors Number of Stairs To Enter/Railing? 1 step to enter has 17 steps to TV room with L rail on first 12 steps and R rail on last 5 steps Home Environment Standard Height Toilet,Walk in Shower,Tub/Shower M2 OT-IP Current Condition Start: 01/14/20 16:21 Freq: Status: Active Protocol: Document 01/14/20 16:21 [facility] (Rec: 01/14/20 16:51 [facility] [id number]) Occupational Therapy Current Condition Current Condition Evaluation Date 01/14/20 Treatment Diagnosis TIA Diagnosis Onset Date 01/13/20 M3 OT- IP Subjective and Pain Start: 01/14/20 16:21 Freq: Status: Active Protocol: Document 01/14/20 16:21 [facility] (Rec: 01/14/20 16:51 [facility] [id number]) OT- Subjective Occupational Therapy Visit Type Type Initial Evaluation Visit Start Time 13:51 Visit Stop Time 14:43 Total Visit Minutes 52 Occupational Therapy Visit Comments Patient Comments Pt states feels back to normal , however pt agreed that pt to do cognitive assessments. Patient/Caregiver Goals TO go home. OT Pain Assessment Pain When Pain Assessed At Rest Pain Present Pain Present Denied Pain M4 OT- IP ADL's Start: 01/14/20 16:21 Freq: Status: Active Protocol: Document 01/14/20 16:21 [facility] (Rec: 01/14/20 16:51 [facility] [id number]) OT [id number] Comments OT Self-Feeding Comments NOt at meal time. OT ADL-Grooming General Evaluation Grooming Ability Independent OT ADL-Toileting General Evaluation Toileting Ability Independent OT ADL-Bathing Comments OT Bathing Comments NOt performed. Suggested that pt's be present to assist as needed and to help determine if she may need a shower chair. M5 OT- IP IADL's Start: 01/14/20 16:21 Freq: Status: Active Protocol: Document 01/14/20 16:21 [facility] (Rec: 01/14/20 16:51 [facility] [id number]) OT-Instrumental Activities of Daily Living Deficits IADL Deficits Identified Deficits Home Safety Awareness Awareness of Need for Assistance at Home Decreased Awareness Ability to Problem Solve Emergency Unable to Problem Solve Situations Home Safety Comments Pt not able to states how to use a fire extinguisher or knew what to in a case the toilet were to overflow. Medication Management Medication Management Caregiver Administers Money Management Money Management Caregiver Provides Assistance Forming Tube Selector Forming Tube Selector Caregiver Provides Assist Driving Driving Concerns Identified Regarding Safety Driving Comments Pt states still drives to the store. Pt's admits that pt should not drive but states, I can not stop her from driving, what should I do take away the keys away ? M6 OT- IP Functional Cognition Start: 01/14/20 16:21 Freq: Status: Active Protocol: Document 01/14/20 16:21 [facility] (Rec: 01/14/20 16:51 [facility] [id number]) Cognitive Factors Limiting Selfcare Function Cognitive Ability Level of Alertness Alert,Confusional State Patient Orientation Name,Year,Place Attention Span Ability Capable of Focused Attention, Unable to Sustain Attention Ability to Follow Commands Able to Follow One Step Commands with Increased Time, Able to Follow One Step Commands with Repetition Memory Description Short Term Impaired,Shelter Impaired,Working Impaired Safety Awareness Underestimates Need for Assistance Problem Solving Ability Unable to Identify Errors, Needs Assist to Identify Solutions Executive Function Ability Unable to Hold Focus,Unable to Switch Focus,Unable to Filter Distractions,Unable to Make Plans,Unable to Organize Plans ,Unable to Remember Details Cognitive Tests SLUMS Pt scored 15/30 which normal score for pt's level of education is 27/30. Pt's score implies dementia. Pt not able to recall the day of the week, able to name 14 animals in one minute, not able to recall any of the 5 objects after time passed, not able to draw the numbers on the clock correctly and bunched up all the numbers on the right side of the clock, not able to draw accurately the hour hands of the clock after time given, and pt able to answer 2/4 questions right after a paragraph read. Cognitive Comments Cognitive Assessment Comments Pt not able to complete Elberta Making Part B sample and therefore did not even get to the formal assessment. Therefore indicates that pt has severe deficits with visual attention, task switching, mental flexibility, speed of processing, and executive function. Strongly suggested that pt should not drive. Pt was not is agreement or disagreement with the suggestion. Pt's asked if it would be okay for pt to walk to the store. Recommended that pt's go with her or someone to go with her to help determine how safe she is. When pt was trying to recall if she used a tub/shower versus walk in shower, pt states that she has a tub/shower. However pt's had to correct her and states that was in their previous home. OT- Vision and Hearing OT- Hearing Assessment OT- Hearing Assessment WFL OT- Vision Assessment Visual Acuity Glasses All The Time Visual Attentiveness WFL Occular Pursuits WFL Visual Convergence WFL Visual [place] WFL Vision Assessment Comments Questionable neglect to the left, to continue to assess. M7 OT- IP Mobility and Balance Start: 01/14/20 16:21 Freq: Status: Active Protocol: Document 01/14/20 16:21 [facility] (Rec: 01/14/20 16:51 [facility] [id number]) OT-Transfer Assessment Sit to and From Stand Sit to and from Stand Independent Transfers Transfer Ability Independent Technique Transfer Destination Chair Devices Transfer Assistive Devices None OT- Gait Assessment Comments Gait Ability Comments Pt able to walk in the room of level surfaces on her own without a device. OT- Balance Assessment Sitting Balance and Reactions Static Sitting Balance Ability Normal Dynamic Sitting Balance Ability Normal Standing Balance and Reactions Static Standing Balance Ability Normal M8 OT- IP Objective Assessments Start: 01/14/20 16:21 Freq: Status: Active Protocol: Document 01/14/20 16:21 [facility] (Rec: 01/14/20 16:51 [facility] [id number]) OT Gross Range of Motion Upper Extremity Range of Motion Assessment Within Functional Limits OT Strength Upper Extremity Strength Assessment Left Impaired Comments Strength Comments LUE 4/5 OT- Coordination Assessment Upper Extremity Finger to Nose Test Left UE Impaired Comments Coordination Comments 23 seconds for LUE and RUE, pt is left handed for 9 hole peg test. Noted more difficulty with in hand manipulation with left hand. OT-Muscle Tone Assessment Muscle Tone WNL Yes OT Sensation Assessment Location Upper Upper Extremity Light Touch Intact/Normal M9 OT- IP Assessment and Plan Start: 01/14/20 16:21 Freq: Status: Active Protocol: Document 01/14/20 16:21 [facility] (Rec: 01/14/20 16:51 [facility] [id number]) OT Summary Assessment and Plan Potential Rehabilitation Potential Fair Analytic Complexity at Evaluation Low Summary OT Impairments Functional Cognition Progress Towards Goals Slow Progress due to Cognition Assessment Summary Pt low complexity and main deficits are decreased functional cognition and prior history of memory loss. Pt also having decreased awareness of her cognition and therefore would suggest that her to provide supervision during all waking hours. Also suggest no driving for pt as based on the cognitive assessment showed severe impairments with visual attention, task switching, mental flexibility, speed of processing, and executive function. Goals Patient/Caregiver Education Goal Caregiver Independent Assisting Patient OT-Other Goals Pt to be able to follow strategies to help with her memory, with assist from to impliment. Days to Meet Goals 1 Frequency of Treatment Frequency Of Treatment Once a Day Treatment Plan OT Treatment Plan Functional Cognition Training, Patient/Family Education, Discharge Planning Other Treatment Recommendations and Next Go over memory strategies. Treatment Focus Discharge Recommendations OT Discharge Recommendations Home with 24/7 Assist Other Discharge Recommendations Assist during waking hours. Transportation Needs at Discharge Private Vehicle
[2020-01-14] MEDS: LORazepam 0.5 MG TABLET 1 MG PO ×3 (17:51→23:49)
[2020-01-14] MEDS: METOPROLOL IR 25 MG TABLET PO (18:06)
--- NOTE | 2020-01-14 18:53 | PC.NURSE ---
Addendum entered by Nathalie Camarillo R.N. 01/14/20 21:58: Sustained Afib RVR per [employer] operator. Dr. Julio notified. IV Dilt administered per orders. Vitals taken prior and and post administration. Vitals remain stable. Original Note: Assumed care of pt at 1500. Pt ambulating in room. Steady on feet. Supportive spouse at bedside. At approx 1745 this senior copywriter was notified by [employer] operator that monitor showed HR was 130-150, irreg. Stat EKG ordered by [employer] operator. notified. Ordered meds given per may. Pt denies s/s of chest pain, pressure, dizziness, palpitations. CPOX left on for close monitoring. Advised pt to call for staff assist if needs to get up.
--- NOTE | 2020-01-14 21:05 | PM.EVENT ---
Event Note Date Patient Seen: 01/14/20 Time Patient Seen: 21:05 Event Note: Spoke with nurse twice in the last 4 hours secondary to patient converting from normal sinus rhythm to asymptomatic atrial fibrillation/flutter with rapid ventricular rate. Her usual dose of metoprolol 25 mg daily was decreased to half today due to her bradycardia at admission. An immediate release metoprolol 25 mg x 1 was administered approximately 4 hours ago with no conversion of rhythm and only a modest improvement in her ventricular rate. She has also been administered Ativan 1 mg x 2 over the past 4 hours secondary to her alcohol intake history even though her CIWA scores have been 0. Since she is still in a flutter with RVR, advised diltiazem 15 mg IV x1. Will watch closely, hopeful for improved rate control and rhythm conversion. May need diltiazem drip tonight or amiodorone if her blood pressure is too low.
[2020-01-14] MEDS: ATORVASTATIN 20 MG TABLET 80 MG PO (21:35)
[2020-01-14] MEDS: dilTIAZem 5 MG/ML SDV 15 MG IV (21:35)
[2020-01-15 01:00] VITALS: BP 106/56; PULSE 85; RESP 16; TEMP 36.7; O2SAT 97
--- NOTE | 2020-01-15 02:26 | PC.NURSE ---
Patient's bed alarm went off at 0140. Eunice Ang CNA noticed the patient out of bed and sitting in the chair. Eunice Ang was charting and noticed the patient on the floor. The EDUCATIONAL ADVISER used the vocera to notify the RN, Jamilah Hamilton. RNToya, ELDON and Eunice Ang assisted the patient up and got her back into bed. Vitals signs were taken; blood pressure was 107/67 and heart rate was 73bpm. The patient assessed for injuries and no visible injuries noted. Dr. Julio notified at 0151 of the unwitnessed fall and that the patient has gotten out of bed 5-10 times an hour since the beginning of the shift. The patient is confused, impulsive and not directable. No new orders received.
[2020-01-15 05:00] VITALS: BP 99/77; PULSE 96; RESP 16; TEMP 36.3; O2SAT 94
[2020-01-15] MEDS: LEVOTHYROXINE 75 MCG TABLET PO (05:01)
[2020-01-15] MEDS: LORazepam 0.5 MG TABLET 1 MG PO (05:01)
[2020-01-15 05:34] LABS: Add Manual Diff / Slide Review NO; Basophils Absolute Auto 0 /uL (0-100); Basophils Percent Auto 0.6 % (0-2); Eosinophils Absolute Auto 100 /uL (0-450); Hematocrit 41.8 % (36-46); Lymphocytes Absolute Auto 1100 /uL (1100-4500); Lymphocytes Percent Auto 16.8 % (25-40); Mean Corpuscular HGB Conc 33.5 % (30-36); Mean Corpuscular Hemoglobin 29.8 PG (26-34); Mean Corpuscular Volume 88.9 fL (80-100); Monocytes Absolute Auto 500 /uL (0-900); Monocytes Percent Auto 7.3 % (3-14); Neutrophils Absolute Auto 4900 /uL (1500-7000); Neutrophils Percent Auto 73.3 % (50-75); Platelet Count 251 X10^3/uL (150-400); Red Cell Distribution Width 14.2 % (11.6-14.8); White Blood Cell Count 6.6 X10^3/uL (4.5-11.0)
[2020-01-15 05:39] LABS: Hemoglobin A1C% w Est Avg Glu 5.7 % (4.0-6.0)
[2020-01-15 05:42] LABS: Magnesium 2.2 mg/dL (1.6-2.3)
[2020-01-15 05:43] LABS: Blood Urea Nitrogen 18 mg/dL (7-17); Calcium 9.1 mg/dL (8.4-10.2); Carbon Dioxide 30 mmol/L (22-32); Chloride 101 mmol/L (98-107); Estimated Glomerular Filt Rate > 60.0 mL/min (>60); Glucose 111 mg/dL (80-110); HEMOLYSIS < 15 (0-50); Potassium 3.4 mmol/L (3.4-5.1); Sodium 133 mmol/L (137-145)
--- NOTE | 2020-01-15 07:34 | PC.NURSE ---
Patient is currently sleeping
--- NOTE | 2020-01-15 09:00 | PC.NURSE ---
Patient continues to sleep soundly. She briefly woke up just after 8am and fell back to sleep.
[2020-01-15 09:15] VITALS: BP 98/68; PULSE 92; RESP 16; TEMP 36.3; O2SAT 96
[2020-01-15] MEDS: FOLIC ACID 1 MG TABLET PO (09:31)
[2020-01-15] MEDS: MULTIVITAMIN 1 TABLET 1 TAB PO (09:31)
[2020-01-15] MEDS: THIAMINE 100 MG TABLET PO (09:31)
[2020-01-15] MEDS: HCTZ PO (09:32)
[2020-01-15] MEDS: SODIUM CHLORIDE 0.9% FLUSH 10 ML IV (09:32)
[2020-01-15] MEDS: TRIAMTERENE PO (09:32)
[2020-01-15] MEDS: DABIGATRAN 75 MG CAPSULE PO (09:32)
[2020-01-15] MEDS: DONEPEZIL 5 MG TABLET 10 MG PO (09:32)
[2020-01-15] MEDS: METOPROLOL ER 25 MG TABLET PO (09:32)
--- NOTE | 2020-01-15 09:35 | PC.NURSE ---
Addendum entered by Lon Johnson CNA 01/15/20 12:08: Late Note: After getting vitals, I found a pill on the floor on the left side of the bed. I handed it to the RN (Antonieta), she identified it as Metoprolol. I then deposited it in the waste container in the med room. Original Note: Patient woke up, got up to use the bathroom. Needed to have contact standby due to being wobbly when standing. She was not quite aware of her surroundings. EKG was performed when patient returned to bed. Vitals were taken and then sat patient up to eat her breakfast.
--- NOTE | 2020-01-15 11:37 | PC.NURSE ---
OT arrived to work with Patient and perform a Shower. Tele removed for shower, ICU notified.
--- NOTE | 2020-01-15 11:56 | OT.IP.TRT ---
Occupational Therapy Treatment Note M2 OT-IP Current Condition Start: 01/14/20 16:21 Freq: Status: Active Protocol: Document 01/14/20 16:21 [facility] (Rec: 01/14/20 16:51 [facility] [id number]) Occupational Therapy Current Condition Current Condition Evaluation Date 01/14/20 Treatment Diagnosis TIA Diagnosis Onset Date 01/13/20 M3 OT- IP Subjective and Pain Start: 01/14/20 16:21 Freq: Status: Active Protocol: Document 01/15/20 12:19 [facility] (Rec: 01/15/20 12:31 [facility] [id number]) OT- Subjective Occupational Therapy Visit Type Type Treatment Note Visit Start Time 11:32 Visit Stop Time 11:56 Total Visit Minutes 24 Occupational Therapy Visit Comments Patient Comments Pt agreed to shower. Patient/Caregiver Goals TO go home. OT Pain Assessment Pain When Pain Assessed At Rest Pain Present Pain Present Denied Pain M4 OT- IP ADL's Start: 01/14/20 16:21 Freq: Status: Active Protocol: Document 01/15/20 12:19 [facility] (Rec: 01/15/20 12:31 [facility] [id number]) OT [id number] Comments OT Self-Feeding Comments NOt at meal time. OT ADL-Grooming General Evaluation Grooming Ability Independent OT ADL-Dressing General Eval Lower Body Dressing Ability Standby Assistance Comments OT Dressing Comments SBA while standing to take off her brief. VC to sit down for safety. OT ADL-Toileting Comments OT Toileting Comments Not having to go at the time. OT ADL-Bathing Bathing Type Bathing Type Shower General Evaluation Bathing Ability Minimal Assistance Devices Bathing Equipment Shower Chair with Arms,Grab Bars Comments OT Bathing Comments SARTHAK for her back and MAX vc for completeness as pt would forget what she already washed and kept asking if over and over if that was the soap dispenser in front of her. M5 OT- IP IADL's Start: 01/14/20 16:21 Freq: Status: Active Protocol: Document 01/14/20 16:21 [facility] (Rec: 01/14/20 16:51 [facility] [id number]) OT-Instrumental Activities of Daily Living Deficits IADL Deficits Identified Deficits Home Safety Awareness Awareness of Need for Assistance at Home Decreased Awareness Ability to Problem Solve Emergency Unable to Problem Solve Situations Home Safety Comments Pt not able to states how to use a fire extinguisher or knew what to in a case the toilet were to overflow. Medication Management Medication Management Caregiver Administers Money Management Money Management Caregiver Provides Assistance Air And Water Filler Air And Water Filler Caregiver Provides Assist Driving Driving Concerns Identified Regarding Safety Driving Comments Pt states still drives to the store. Pt's admits that pt should not drive but states, I can not stop her from driving, what should i do take away the flores ? M6 OT- IP Functional Cognition Start: 01/14/20 16:21 Freq: Status: Active Protocol: Document 01/15/20 12:19 [facility] (Rec: 01/15/20 12:31 [facility] [id number]) Cognitive Factors Limiting Selfcare Function Cognitive Ability Level of Alertness Alert,Confusional State Patient Orientation Name Attention Span Ability Capable of Focused Attention, Unable to Sustain Attention Ability to Follow Commands Able to Follow One Step Commands with Increased Time, Able to Follow One Step Commands with Repetition Memory Description Short Term Impaired,Business Loan Processor Impaired,Working Impaired Safety Awareness Underestimates Need for Assistance Problem Solving Ability Unable to Identify Errors, Needs Assist to Identify Solutions Executive Function Ability Unable to Hold Focus,Unable to Switch Focus,Unable to Filter Distractions,Unable to Make Plans,Unable to Organize Plans ,Unable to Remember Details Cognitive Comments Cognitive Assessment Comments Pt very confused , even a little more then yesterday and did not realize after getting out of the shower that she was in the hospital. Pt needing step by step commands for help sequence through task of showering. M7 OT- IP Mobility and Balance Start: 01/14/20 16:21 Freq: Status: Active Protocol: Document 01/15/20 12:19 [facility] (Rec: 01/15/20 12:31 [facility] [id number]) OT- Bed Mobility Assessment Supine to Sit Supine to Sit Assist Standby Assistance OT-Transfer Assessment Transfers Transfer Ability Contact Guard Assistance Technique Transfer Destination Bed,Shower Stall Devices Transfer Assistive Devices None Comments Mobility Comments Noted pt more unsteady on her feet at this time and needing at times CGA for balance. OT- Gait Assessment Comments Gait Ability Comments CGA OT- Balance Assessment Sitting Balance and Reactions Static Sitting Balance Ability Normal Dynamic Sitting Balance Ability Normal Standing Balance and Reactions Static Standing Balance Ability Good Protocol: Document 01/15/20 12:19 [facility] (Rec: 01/15/20 12:31 [facility] [id number]) OT Summary Assessment and Plan Potential Rehabilitation Potential Fair Analytic Complexity at Evaluation Low Summary OT Impairments Functional Cognition, Functional Mobility Assessment Summary Today noted decreased overall balance and more unsteady on her feet today and suggest that if she was going home that her would have to be there at all times for mobility in addition to her safety needs due to decreased functional cognition. Pt if going home will need 24/7 assist otherwise pt would benefit from a memory care placement. Goals Grooming Goal Standby Assistance Dressing Goal Standby Assistance Toileting Goal Standby Assistance Bathing Goal Standby Assistance Toilet Transfer Goal Standby Assistance Shower Transfer Goal Standby Assistance Patient/Caregiver Education Goal Caregiver Independent Assisting Patient OT-Other Goals Pt to be able to follow strategies to help with her memory, with assist from to impliment. Days to Meet Goals 3 Frequency of Treatment Frequency Of Treatment Once a Day Treatment Plan OT Treatment Plan Functional Cognition Training, Patient/Family Education, Discharge Planning Other Treatment Recommendations and Next Go over memory strategies. Treatment Focus Discharge Recommendations OT Discharge Recommendations Home with 24/7 Assist Transportation Needs at Discharge Private Vehicle
[2020-01-15 12:00] VITALS: BP 106/75; PULSE 82; RESP 16; TEMP 36.8; O2SAT 96
--- NOTE | 2020-01-15 12:36 | P.DS_ITS ---
History of Present Illness History of Present Illness Date Patient Seen: 01/15/20 Time Patient Seen: 12:36 Chief complaint: POSSIBLE STROKE Narrative: 69 year old female with a history of atherosclerotic disease, memory loss, prior TIAs x2 currently on Pradaxa, hypothyroidism and hyperlipidemia presented overnight with stroke-like symptoms: confusion, difficulty with word finding, completing sentences and global weakness. Symptoms began 20 minutes before arrival to the ED and resolved during her ED stay. ED workup significant for a negative CT scan. EKG showed bradycardia with ventricular rate of 49 and known right bundle-branch block with no ischemic changes. Patient was intoxicated with an ethanol level of 212. She was given Ativan x1. Vital signs included a temperature of 98?, pulse 47, respirations 18, blood pressure 132/84, O2 saturation 98% on room air. She was admitted for observation and the remainder of her stroke workup. She has had an uneventful night and feels back to her baseline.. Discharge Providers Provider Date of admission: 01/13/20 21:26 Discharge Date: 01/15/20 Primary care physician: Mariaelena Julio MD Consults: 01/14/20 07:55 Consult to Discharge Planning Routine Comment: 01/14/20 07:59 Consult to Occupational Therapy Evaluate & Treat Comment: Physician Instructions: Evaluate and treat Consult to Physical Therapy Evaluate & Treat Comment: Physician Instructions: Evaluate and Treat 01/14/20 08:13 Consult to Dietitian, Adult Routine Comment: Reason For Exam: alcohol dependence Discharge provider: Mariaelena Julio MD Summary Hospital Course Discharge Diagnosis: 1. TIA 2. Atrial fibrillation 3. Hyperlipidemia with history atherosclerotic disease 4. Hypertension 5. History of right bundle-branch block 6. Hypothyroidism 7. Memory loss 8. Alcohol dependence Hospital Course: Remarkable for bradycardia upon admission, metoprolol 25 mg home dose was decreased to 12.5 mg on her 1st day of admission. Patient was in normal sinus rhythm at presentation but approximately 24 hours later converted into atrial fibrillation with a rapid ventricular rate. She was given 25 mg of metoprolol with no conversion and was then administered 50 mg of IV diltiazem with good rate control but sustained atrial fibrillation. Dr. Decker, on-call farmworker machine was consulted and he reviewed her previous event monitor that showed that the patient has a history of being in atrial fibrillation approximately 42% of the time. She was asymptomatic throughout her hospital sta y. Stroke workup was also negative. Dr. Decker recommended that she be discharged on an increased dose of Pradaxa, 150 mg p.o. b.i.d.. Her atorvastatin was also increased to 80 mg p.o. q.h.s.. She will follow-up in 1 week in primary care clinic and thereafter in cardiology clinic. She understa nds return for any worsening symptoms including uncontrolled blood pressure, stroke-like symptoms, or any other concerns. On day of discharge, she is afebrile with stable vital signs throughout. Time spent on Discharge and Coordination of post-hospital care: 35 minutes Exam Vital Signs (past 8 hours): - 01/15/20 05:00 01/15/20 09:15 01/15/20 12:00 Temperature 97.4 F L 97.3 F L 98.3 F Pulse Rate 96 H 92 H 82 Respiratory Rate 16 16 16 Blood Pressure 99/77 98/68 106/75 Pulse Oximetry 94 96 96 Oxygen Delivery Method Room Air Oxygen Flow Rate 0 Narrative Exam Narrative: GENERAL: Alert and oriented, appearing stated age and in no acute distress. HEENT: Head normocephalic/atraumatic. LUNGS: Clear to ausculation bilaterally, no wheezes, rhonchi or rales. CV: Irregularly irregular, no audible murmurs, rubs or gallops. ABDOMEN: Soft, non-tender, non-distended, no organomegaly. Positive bowel soun ds. EXTREMITIES: No clubbing, cyanosis, or edema. NEURO: Cranial nerves II through XII grossly intact, no focal deficits. PSYCH: Alert and oriented x 3. SKIN: No concerning lesions. Objective Labs Result Diagrams: 01/15/20 05:20 01/15/20 05:20 Labs: Laboratory Results - last 24 hr 01/15/20 01/15/20 01/15/20 05:20 05:20 05:20 WBC 6.6 RBC 4.70 Hgb 14.0 Hct 41.8 MCV 88.9 MCH 29.8 MCHC 33.5 RDW 14.2 Plt Count 251 Neut % (Auto) 73.3 Lymph % (Auto) 16.8 L [place] % (Auto) 7.3 Eos % (Auto) 2.0 Baso % (Auto) 0.6 Neut # (Auto) 4900 Lymph # (Auto) 1100 [place] # (Auto) 500 Eos # (Auto) 100 Baso # (Auto) 0 Sodium 133 L Potassium 3.4 Chloride 101 Carbon Dioxide 30 BUN 18 H Creatinine 0.75 Estimated GFR > 60.0 BUN/Creatinine Ratio 24.0 H Glucose 111 H Hemoglobin A1c 5.7 Calcium 9.1 Magnesium 01/15/20 05:20 WBC RBC Hgb Hct MCV MCH MCHC RDW Plt Count Neut % (Auto) Lymph % (Auto) [place] % (Auto) Eos % (Auto) Baso % (Auto) Neut # (Auto) Lymph # (Auto) [place] # (Auto) Eos # (Auto) Baso # (Auto) Sodium Potassium Chloride Carbon Dioxide BUN Creatinine Estimated GFR BUN/Creatinine Ratio Glucose Hemoglobin A1c Calcium Magnesium 2.2 Discharge Plan Discharge Plan Patient Disposition: Home Discharge orders & Medications Prescriptions: New atorvastatin [Lipitor] 20 mg Tablet 80 mg PO BEDTIME Qty: 90 RF: 3 Pradaxa 75 mg Capsule 150 mg PO BID Qty: 180 RF: 3 Continued donepezil 10 mg tablet 10 mg PO DAILY RF: 0 levothyroxine 75 mcg tablet 75 mcg PO DAILY RF: 0 metoprolol succinate 25 mg tablet extended release 24 hr 25 mg PO DAILY RF: 0 triamterene-hydrochlorothiazid 37.5-25 mg tablet See Rx Instructions .ROUTE .COMPLEX RF: 0 Discontinued atorvastatin 20 mg tablet 20 mg PO DAILY RF: 0 Pradaxa 75 mg capsule 75 mg PO BID RF: 0 Pradaxa 75 mg capsule PO BID RF: 0 Follow up/Referrals: Mariaelena Julio MD [Primary Care Provider] - 01/22/20 3:30 pm (appt:01/21 @ 3:[address] julio ) Diet/Activity/Treatments Diet: Diet as Tolerated Activity: As tolerated. Skin/Wound/Dressing Care Report to your healthcare provider any signs of infection, such as:: chills, fever and increased pain Visit Report/Discharge Packet Instructions: DI for Transient Ischemic Attack, DI for Atrial Fibrillation, How to Prevent Falls, Atorvastatin, Dabigatran Visit Report Forms: Patient Portal/API, Stroke Signs & Symptoms Discharge Data Primary Care Provider: Mariaelena Julio Attending Provider: Neville Corona Admit Date/Time: 01/13/20 21:26
--- NOTE | 2020-01-15 13:07 | PC.NURSE ---
Patient is currently getting dressed to go home. Patient's arrived and spoke with her. is discharging the patient. Tele has been removed, ICU notified.
--- NOTE | 2020-01-15 13:35 | OT.IP.TRT ---
Occupational Therapy Treatment Note M2 OT-IP Current Condition Start: 01/14/20 16:21 Freq: Status: Active Protocol: Document 01/14/20 16:21 [facility] (Rec: 01/14/20 16:51 [facility] [id number]) Occupational Therapy Current Condition Current Condition Evaluation Date 01/14/20 Treatment Diagnosis TIA Diagnosis Onset Date 01/13/20 M3 OT- IP Subjective and Pain Start: 01/14/20 16:21 Freq: Status: Active Protocol: Document 01/15/20 13:45 [facility] (Rec: 01/15/20 13:58 [facility] [id number]) OT- Subjective Occupational Therapy Visit Type Type Treatment Note Visit Start Time 13:20 Visit Stop Time 13:35 Total Visit Minutes 15 Occupational Therapy Visit Comments Patient Comments Pt seen a second time due to pt being discharged today and needing to talk to pt's regarding the need to assist pt at all times as at times balance is off. Patient/Caregiver Goals TO go home. M4 OT- IP ADL's Start: 01/14/20 16:21 Freq: Status: Active Protocol: Document 01/15/20 12:19 [facility] (Rec: 01/15/20 12:31 [facility] [id number]) OT [id number] Comments OT Self-Feeding Comments NOt at meal time. OT ADL-Grooming General Evaluation Grooming Ability Independent OT ADL-Dressing General Eval Lower Body Dressing Ability Standby Assistance Comments OT Dressing Comments SBA while standing to take off her brief. VC to sit down for safety. OT ADL-Toileting Comments OT Toileting Comments Not having to go at the time. OT ADL-Bathing Bathing Type Bathing Type Shower General Evaluation Bathing Ability Minimal Assistance Devices Bathing Equipment Shower Chair with Arms,Grab Bars Comments OT Bathing Comments SARTHAK for her back and MAX vc for completeness as pt would forget what she already washed and kept asking if over and over if that was int soap in front of her. M5 OT- IP IADL's Start: 01/14/20 16:21 Freq: Status: Active Protocol: Document 01/14/20 16:21 [facility] (Rec: 01/14/20 16:51 [facility] [id number]) OT-Instrumental Activities of Daily Living Deficits IADL Deficits Identified Deficits Home Safety Awareness Awareness of Need for Assistance at Home Decreased Awareness Ability to Problem Solve Emergency Unable to Problem Solve Situations Home Safety Comments Pt not able to states how to use a fire extinguisher or knew what to in a case the toilet were to overflow. 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 Pt's admits that pt should not drive but states, I can not stop her from driving, what should i do take away the flores ? M6 OT- IP Functional Cognition Start: 01/14/20 16:21 Freq: Status: Active Protocol: Document 01/15/20 13:45 [facility] (Rec: 01/15/20 13:58 [facility] [id number]) Cognitive Factors Limiting Selfcare Function Cognitive Ability Level of Alertness Alert,Confusional State Patient Orientation Name Attention Span Ability Capable of Focused Attention, Unable to Sustain Attention Ability to Follow Commands Able to Follow One Step Commands with Increased Time, Able to Follow One Step Commands with Repetition Memory Description Short Term Impaired,[place] Impaired,Working Impaired Safety Awareness Underestimates Need for Assistance Problem Solving Ability Unable to Identify Errors, Needs Assist to Identify Solutions Executive Function Ability Unable to Hold Focus,Unable to Switch Focus,Unable to Filter Distractions,Unable to Make Plans,Unable to Organize Plans ,Unable to Remember Details Cognitive Comments Cognitive Assessment Comments Pt continues to be confused and poor awareness and insight to her disabilities. M7 OT- IP Mobility and Balance Start: 01/14/20 16:21 Freq: Status: Active Protocol: Document 01/15/20 13:45 [facility] (Rec: 01/15/20 13:58 [facility] [id number]) OT-Transfer Assessment Comments Mobility Comments Had pt's assist pt for walking in the hallway. Noted at times pt sways and leans backwards while walking. Pt's able to assist her CGA with gait belt. Pt's shown how to jc/doff the gait belt. Pt able to do the stairs with SBA and use of the railng. Pt's states will probably just stay on the main levle now. OT- Gait Assessment Comments Gait Ability Comments close SBA to CGA at this time while in the room. OT- Balance Assessment Sitting Balance and Reactions Static Sitting Balance Ability Normal Dynamic Sitting Balance Ability Normal Standing Balance and Reactions Static Standing Balance Ability Good Comments Other Balance Tests/Deviations/Treatment Pt not able to do single leg : stance or tandem stance without loss of balance. . OT-Muscle Tone Assessment Muscle Tone WNL Yes OT Sensation Assessment Location Upper Upper Extremity Light Touch Intact/Normal M9 OT- IP Assessment and Plan Start: 01/14/20 16:21 Freq: Status: Active Protocol: Document 01/15/20 13:45 [facility] (Rec: 01/15/20 13:58 [facility] [id number]) OT Summary Assessment and Plan Potential Rehabilitation Potential Fair Analytic Complexity at Evaluation Low Summary OT Impairments Functional Cognition, Functional Mobility Assessment Summary Training with in how to assist pt for mobility needs. Pt's requesting one more visit with PT regarding pt mobility needs and therefore able to ask nursing and then able to get orders for PT eval from her physician. Yesterday pt was seen by PT and was discharged as doing well. Pt' s aware to provide pt physical assist especially on uneven surfaces. Frequency of Treatment Frequency Of Treatment Twice a Day Treatment Plan OT Treatment Plan Functional Cognition Training, Patient/Family Education, Discharge Planning Discharge Recommendations OT Discharge Recommendations Home with 25/09 Assist Transportation Needs at Discharge Private Vehicle
--- NOTE | 2020-01-15 13:45 | PT.IIE ---
Medical History (Last Updated 01/13/20 @ 20:48 by Priyanka Magdaleno MD) ASCVD (arteriosclerotic cardiovascular disease) (Acute) Hyperlipidemia (Acute) Hypertension (Acute) Memory dysfunction (Acute) TIA (transient ischemic attack) (Acute) Physical Therapy Inpatient Evaluation/Re-Eval M1 PT/OT-IP Prior Functional Status Start: 01/14/20 13:08 Freq: NEEDED Status: Active Protocol: Document 01/15/20 13:45 [facility] (Rec: 01/15/20 16:55 [facility] [email or web address]) Medical Review Prior Functional Status Medical History Reviewed Yes Communication able to make needs known Mobility and Gait pt stated that she is independent with all mobilities and ambulation without AD; usually walks up a hill ~ 2 miles daily Activities of Daily Living and IADL's Pt independent with all ADl's. Pt's states does her bills and finances. 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 Social History Household Members spouse Living Arrangements House Number of Floors (Floors) Two Floors Number of Stairs To Enter/Railing? 1 step to enter has 17 steps to TV room with L rail on first 12 steps and R rail on last 5 steps Home Environment Standard Height Toilet,Walk in Shower,Tub/Shower M1 PT/OT-IP Prior Functional Status Start: 01/14/20 16:21 Freq: NEEDED Status: Active Protocol: Document 01/14/20 16:21 [facility] (Rec: 01/14/20 16:51 [facility] [id number]) Medical Review Prior Functional Status Medical History Reviewed Yes Communication able to make needs known Mobility and Gait pt stated that she is independent with all mobilities and ambulation without AD; usually walks up a hill ~ 2 miles daily Activities of Daily Living and IADL's Pt independent with all ADl's. Pt's states does her bills and finances. 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 Social History Household Members spouse Living Arrangements House Number of Floors (Floors) Two Floors Number of Stairs To Enter/Railing? 1 step to enter has 17 steps to TV room with L rail on first 12 steps and R rail on last 5 steps Home Environment Standard Height Toilet,Walk in Shower,Tub/Shower M2 PT-IP Current Condition Start: 01/14/20 13:08 Freq: NEEDED Status: Active Protocol: Document 01/15/20 13:45 [facility] (Rec: 01/15/20 16:55 [facility] [id number]) Physical Therapy Current Condition Current Condition Evaluation Date 01/15/20 Treatment Diagnosis TIA; difficulty in walking Onset Date 01/13/20 M3 PT-IP Subjective Start: 01/14/20 13:08 Freq: NEEDED Status: Active Protocol: Document 01/15/20 13:45 [facility] (Rec: 01/15/20 16:55 [facility] [id number]) Subjective Physical Therapy Visit Type Type Re-Evaluation Visit Start Time 13:45 Visit Stop Time 14:09 Total Visit Minutes 24 Number of DIRT CONTRACTOR Visits 0 M4 PT-IP Mobility and Gait Start: 01/14/20 13:08 Freq: NEEDED Status: Active Protocol: Document 01/15/20 13:45 [facility] (Rec: 01/15/20 16:55 [facility] [id number]) PT-Bed Mobility Assessment Supine to Sit Supine to Sit Standby Assistance Sit to Supine Sit to Supine Standby Assistance Scooting Scooting to Edge of Bed Standby Assistance PT-Transfer Assessment Sit to and From Stand Sit to and from Stand Standby Assistance Equipment Transfer Assistive Device None,Gait Belt Orthotic/Prosthetic Devices or Brace: No Comments Mobility Comments per OT, pt is more unsteady today compared to yesterday's and is concerned about pt needing an AD for ambulation. OT stated that she did some caregiver training with spouse but pt did not use AD for steadiness during mobility. OT requested PT eval to further assess pt. pt completed bed mobility SBA, sit to stand SBA and ambulation towards the stairs SBA without AD. completed up/ down steps initially SBA asceding but was unsteady with descent requiring CGA to min A. pt is impulsive and educated for safety but due to pt's decrease cognition, unable to consistently follow. pt repeated stair climbing x 3 sets and requiring min A and cues. informed pt to do step to pattern and not step through. pt ambulated back to the room CGA for safety due to pt being more unsteady and stated that she is just tired. talked to pt's spouse regarding steadiness and safety and that unsteadiness might be due to fatigue as pt was able to ambulate SBA during start of tx but was needing CGA towards end of PT session. informed pt and spouse that pt will be safe without AD indoors/short distance ambulation without AD but spouse will provide SBA for safety. pt will benefit from an AD for outdoor mobility. assessed ambulation using SPC but pt unable to use SPC correctly. ambulated using FWW and pt completed SBA ~ 40 ft. informed pt's spouse that pt will benefit from FWW for safety especially for long distance ambulation. pt and spouse agreed. provided DME list to pt/spouse . spouse stated that he will borrow one from the [employer]. Gait Assessment Gait Gait Assistance Required: Standby Assistance,Contact Guard Assist Distance (Feet) 125 Able to Maintain Weight Bearing Status Yes During Gait Assistive Devices Assistive Device None,Gait Belt,Straight Cane, Front Wheeled Walker Orthotic/Prosthetic Devices or Brace: No Gait Deviations General Gait Pattern Decreased Stride Length, Decreased Feet Clearance, Narrow Based Gait Factors Limiting Gait Function Factors Limiting Gait Function Decreased Activity Tolerance, Difficulty Following Directions,Poor Balance,Poor Safety Awareness Comments Gait Comments pls refer to mobility section for details Stair Climbing Assessment Evaluation Level of Assist On Stairs Standby Assistance,Contact Guard Assistance,Minimal Assistance,1 Person Assistance Devices Stair Climbing Assistive Devices None Technique/Endurance Stair Climbing Direction Ascend and Descend Stair Climbing Technique Step Over Step,Step to Step Number of Steps Climbed 3 Query Text: Stair Climbing Set # Repetitions (reps) 3 Comments Stair Climbing Comments pls refer to mobility section for details PT-Balance Assessment Sitting Balance and Reactions Static Sitting Balance Ability Good Dynamic Sitting Balance Ability Good Standing Balance and Reactions Static Standing Balance Ability Good Dynamic Standing Balance Ability Fair Device Used without AD M5 PT-IP Objective Assessments Start: 01/14/20 13:08 Freq: NEEDED Status: Active Protocol: Document 01/14/20 11:33 [facility] (Rec: 01/14/20 13:28 [facility] [id number]) Orientation Orientation/Cognition Level of Alertness Alert Orientation Name,Situation Memory Description Short Term Impaired,Residential Impaired Comments pt can be impulsive Gross Range of Motion Lower Extremity ROM Assessment Within Functional Limits Strength Lower Extremity Strength Assessment Within Functional Limits Sensation Assessment Sensation Gross Sensation WNL Muscle Tone Muscle Tone WNL Yes M6 PT-IP Treatment Start: 01/14/20 13:08 Freq: NEEDED Status: Active Protocol: Document 01/15/20 13:45 [facility] (Rec: 01/15/20 16:55 [facility] [id number]) Physical Therapy Treatment Education Education Provided Safety M7 PT-IP Assessment and Plan Start: 01/14/20 13:08 Freq: NEEDED Status: Active Protocol: Document 01/15/20 13:45 [facility] (Rec: 01/15/20 16:55 [facility] [id number]) PT Summary Assessment and Plan Potential Rehabilitation Potential Good Status of Condition at Evaluation Stable Summary Impairments Pain,ROM,Strength,Balance, Coordination,Sensation,Tone, Cognition,Bed Mobility, Transfers,Gait,Activity Tolerance Assessment Summary pt plans to go home today with spouse assisting. Pt seems to be more unsteady today compared yesterdays. pt was able to ambulate SBA at start of PT session but unsteadiness becomes more evident during ends of tx session. pt stated that she feels tired. informed pt and spouse regarding FWW recommendation for long distance outdoor mobility and agreed. informed spouse that if balance issues persists, he might want to inform pt's PCP for outpt PT but at this time, unsteadiness might be due to fatigue and pt also has h/o ETOH. pt plans to go home today with spouse to assist her. Goals Bed Mobility Goal Independent Transfer Goal Independent Gait Goal Independent Gait Distance 300 Other Goals up/down 1 step without AD mod I up/down 3 steps using 1 rail mod I Frequency of Treatment Frequency Of Treatment Once a Day Treatment Plan Physical Therapy Treatment Plan Bed Mobility Training,Transfer Training,Gait Training, Therapeutic Exercise,Balance Retraining,Post Op Education, Discharge Planning,Hot or Cold Pack,Neuromuscular Re-ed, Coordination Retraining,Manual Therapy Recommendations To Nursing Amount of Assist Needed Standby Assistance Discharge Recommendations PT Discharge Recommendations Home with Assistance Transportation Needs at Discharge Private Vehicle
--- NOTE | 2020-01-15 14:17 | PC.NURSE ---
Patient is sitting on the bedside awaiting for PT to do a followup.
--- NOTE | 2020-01-15 14:54 | PC.NURSE ---
Discharge: Pt feels ready to d/c home. Spouse here. He wasn't sure if he would be able to adaquetely care for her since she has been so unsteady today. PT restarted and they came and saw her and spouse again. (Pt had a glf last night, no apparent injury, Spouse and Dr. Julio made aware of fall w/out apparent injury) After working with PT for both pt and spouse they felt they were able to go home. Also given information on how to prevent falls. Reviewed discharge packet, rx was esent. Questions answered. Pt d/c home via auto w/spouse.
== END 2020-01-15 14:55 | disposition home or self-care (01) ==
LOC: ED 21:03 → AC 21:27
PROVIDERS: Emergency Medicine; Admitting Provider Family Medicine; Emergency Provider Emergency Medicine; PCP Student in an Organized Health Care Education/Training Program; Referring Provider Emergency Medicine; Visit Provider Family Medicine
DX: G45.9 Transient cerebral ischemic attack, unspecified (principal); R29.818 Other symptoms and signs involving the nervous system; R41.0 Disorientation, unspecified; R53.1 Weakness; R41.3 Other amnesia; I25.10 Atherosclerotic heart disease of native coronary artery without angina pectoris; E78.5 Hyperlipidemia, unspecified; E03.9 Hypothyroidism, unspecified; I10 Essential (primary) hypertension; F10.20 Alcohol dependence, uncomplicated; I48.91 Unspecified atrial fibrillation; Z11.59 Encounter for screening for other viral diseases
CPT/HCPCS: 36415; 70450; 70548; 70553; 80048; 80053; 80320; 82550; 82962; 83036; 83690; 83735; 84484; 85025; 85610; 85730; 87635; 93005; 93306; 93880; 96374; 97161; 97165; 97530; 97535; 99285; G0378

== ENCOUNTER → 2020-03-23 13:36 | Outpatient (CLI) | payer OTHER, SELFPAY ==
[2020-01-14 04:52] VITALS: BMI 21.7
[2020-03-23 15:57] LABS: BUN Creatinine Ratio 17.9 (6-22); Blood Urea Nitrogen 14 mg/dL (7-17); Calcium 9.4 mg/dL (8.4-10.2); Carbon Dioxide 34 mmol/L (22-32); Chloride 102 mmol/L (98-107); Estimated Glomerular Filt Rate > 60.0 mL/min (>60); Glucose 95 mg/dL (80-110); HEMOLYSIS < 15 (0-50); Magnesium 2.2 mg/dL (1.6-2.3); Potassium 3.7 mmol/L (3.4-5.1); Sodium 138 mmol/L (137-145)
[2020-03-23 16:15] LABS: Free T4, Direct Thyroxine 1.64 ng/dL (0.78-2.19)
[2020-03-23 16:29] LABS: Thyroid Stimulating Hormone 0.287 uIU/mL (0.47-4.68)
== END ==
PROVIDERS: PCP Student in an Organized Health Care Education/Training Program; Referring Provider Nurse Practitioner; Visit Provider Nurse Practitioner
DX: I10 Essential (primary) hypertension (principal); I48.0 Paroxysmal atrial fibrillation
CPT/HCPCS: 36415; 80048; 83735; 84439; 84443

== ENCOUNTER → 2020-05-31 14:47 | Outpatient (CLI) | payer OTHER, SELFPAY ==
[2020-01-14 04:52] VITALS: BMI 21.7
[2020-05-31 15:38] LABS: BUN Creatinine Ratio 13.9 (6-22); Blood Urea Nitrogen 11 mg/dL (7-17); Calcium 9.7 mg/dL (8.4-10.2); Carbon Dioxide 32 mmol/L (22-32); Chloride 100 mmol/L (98-107); Estimated Glomerular Filt Rate > 60.0 mL/min (>60); Glucose 98 mg/dL (80-110); HEMOLYSIS < 15 (0-50); Potassium 3.6 mmol/L (3.4-5.1); Sodium 137 mmol/L (137-145)
[2020-05-31 16:46] LABS: TSH w/ Reflex to FT4 0.94 uIU/mL (0.47-4.68)
== END ==
PROVIDERS: PCP Student in an Organized Health Care Education/Training Program; Referring Provider Nurse Practitioner; Visit Provider Nurse Practitioner
DX: I10 Essential (primary) hypertension (principal); I48.91 Unspecified atrial fibrillation
CPT/HCPCS: 36415; 80048; 84443

== ENCOUNTER → 2020-10-20 10:04 | Outpatient (CLI) | payer OTHER, SELFPAY ==
[2020-01-14 04:52] VITALS: BMI 21.7
== END ==
PROVIDERS: PCP Student in an Organized Health Care Education/Training Program; Referring Provider Student in an Organized Health Care Education/Training Program; Visit Provider Student in an Organized Health Care Education/Training Program
DX: Z78.0 Asymptomatic menopausal state (principal); M81.0 Age-related osteoporosis without current pathological fracture; Z87.891 Personal history of nicotine dependence
CPT/HCPCS: 77080

== ENCOUNTER → 2020-12-04 10:13 | Outpatient (CLI) | payer OTHER, SELFPAY ==
[2020-01-14 04:52] VITALS: BMI 21.7
--- NOTE | 2020-12-04 | DI.MG.S_ITS ---
BILATERAL DIGITAL SCREENING MAMMOGRAM 3D/2D WITH CAD: 12/04/2020 CLINICAL: Routine screening. Comparison is made to exams dated: 12/04/2019 mammogram, 12/02/2018 mammogram, and 11/29/2017 mammogram - [facility]. There are scattered fibroglandular elements in both breasts. Current study was also evaluated with a Computer Aided Detection (CAD) system. No significant masses, calcifications, or other findings are seen in either breast. There has been no significant interval change. IMPRESSION: NEGATIVE There is no mammographic evidence of malignancy. A 1 year screening mammogram is recommended. This exam was interpreted at Station ID: [id number]. NOTE: For mammograms, a report in lay terms will be sent to the patient. Approximately 15% of breast malignancies will not be visualized mammographically. In the management of a palpable breast mass, a negative mammogram must not discourage biopsy of a clinically suspicious lesion. Electronically Signed By: Conrda James M.D. at/chelsie:12/06/2020 07:52:14 letter sent: Normal Exam ACR BI-RADS Category 1: Negative [id number]
== END ==
PROVIDERS: PCP Student in an Organized Health Care Education/Training Program; Referring Provider Student in an Organized Health Care Education/Training Program; Visit Provider Student in an Organized Health Care Education/Training Program
DX: Z12.31 Encounter for screening mammogram for malignant neoplasm of breast (principal)
CPT/HCPCS: 77063; 77067

== ENCOUNTER 2022-02-01 14:32 | Emergency (ER) | payer OTHER, SELFPAY ==
[2020-01-14 04:52] VITALS: BMI 21.7
[2022-02-01] VITALS (10 sets, daily range): BP systolic 90–104; BP diastolic 53–64; PULSE 83–99; RESP 16–23; TEMP 36.4; O2SAT 97–99; BMI 22.2
[2022-02-01 14:50] LABS: Add Manual Diff / Slide Review NO; Basophils Absolute Auto 0 /uL (0-100); Basophils Percent Auto 0.6 % (0-2); Eosinophils Absolute Auto 200 /uL (0-450); Eosinophils Percent Auto 2.7 % (2-4); Hematocrit 44.4 % (36-46); Hemoglobin 14.8 g/dL (12.0-16.0); Lymphocytes Absolute Auto 500 /uL (1100-4500); Lymphocytes Percent Auto 8.1 % (25-40); Mean Corpuscular HGB Conc 33.4 % (30-36); Mean Corpuscular Hemoglobin 28.9 PG (26-34); Mean Corpuscular Volume 86.5 fL (80-100); Monocytes Absolute Auto 500 /uL (0-900); Monocytes Percent Auto 7.3 % (3-14); Neutrophils Absolute Auto 5000 /uL (1500-7000); Neutrophils Percent Auto 81.3 % (50-75); Platelet Count 225 X10^3/uL (150-400); Red Blood Cell Count 5.13 X10^6/uL (4.0-5.2); Red Cell Distribution Width 14.6 % (11.6-14.8); White Blood Cell Count 6.2 X10^3/uL (4.5-11.0)
[2022-02-01 14:57] LABS: Alanine Aminotransferase 75 IU/L (<35); Albumin 4.5 g/dL (3.5-5.0); Albumin Globulin Ratio 1.4 (1.0-2.8); Alkaline Phosphatase 124 U/L (38-126); Aspartate Aminotransferase 57 IU/L (14-36); BUN Creatinine Ratio 14.8 (6-22); Bilirubin Total 1.3 mg/dL (0.2-1.3); Blood Urea Nitrogen 13 mg/dL (7-17); Calcium 9.5 mg/dL (8.4-10.2); Carbon Dioxide 29 mmol/L (22-32); Chloride 99 mmol/L (98-107); Estimated Glomerular Filt Rate > 60 mL/min (>60); Globulin 3.2 g/dL (1.7-4.1); Glucose 150 mg/dL (80-110); HEMOLYSIS < 15 (0-50); Lipase 80 U/L (23-300); Potassium 3.3 mmol/L (3.4-5.1); Sodium 140 mmol/L (137-145); Total Protein 7.7 g/dL (6.3-8.2)
--- NOTE | 2022-02-01 15:00 | ED_ITS ---
HPI - General Adult General Chief complaint: Syncope Stated complaint: Near Snycope Time Seen by Provider: 02/01/22 14:44 Source: EMS Mode of arrival: EMS History of Present Illness HPI narrative: 71-year-old female. Is on Pradaxa. Does have a history of dementia. states that he heard a thump. He walked in the bathroom and found her leaning up against the wall next to the toilet. He states that he tried to arouse her but had a difficult time doing so. He went out into the living room to contact EMS. He states that while he was on the phone with EMS she walked out of the bathroom into the living room. EMS states that she does not remember the event. She would no signs of trauma. She is unsure as to why she is here. Patient at baseline mental status per . No history of seizures. This has happened to her in the past where they were told it was a TIA. Related Data Home Medications Medication Instructions Recorded Confirmed donepezil 10 mg tablet 10 mg PO DAILY 01/13/20 01/13/20 levothyroxine 75 mcg tablet 75 mcg PO DAILY 01/13/20 01/13/20 metoprolol succinate 25 mg 25 mg PO DAILY 01/13/20 01/13/20 tablet,extended release 24 hr triamterene 37.5 See Rx Instructions .Route .COMPLEX 01/13/20 01/13/20 mg-hydrochlorothiazide 25 mg tablet Previous Rx's Medication Instructions Recorded atorvastatin 20 mg tablet (Lipitor) 80 mg PO BEDTIME #90 tabs 01/15/20 dabigatran etexilate 75 mg capsule 150 mg PO BID #180 caps 01/15/20 (Pradaxa) Allergies Allergy/AdvReac Type Severity Reaction Status Date / Time No Known Drug Allergies Allergy Verified 01/13/20 21:24 Review of Systems Review of Systems Narrative: Provided by patient and Eyes Comments: No vision changes Cardiovascular Comments: No chest pain Respiratory Comments: No shortness of breath Gastrointestinal Comments: No abdominal pain Musculoskeletal Comments: No muscle or extremity complaints Integumentary/Breasts Comments: No abrasions or rashes Neurologic Neurologic: Reports system reviewed and no additional complaints, except as documented Hematologic/Lymphatic On Anticoagulants: Yes Patient History Medical History ASCVD (arteriosclerotic cardiovascular disease) Hyperlipidemia Hypertension Memory dysfunction TIA (transient ischemic attack) Social History household members: spouse Smoking Status: Never smoker alcohol intake: current Smoking Status: Never smoker alcohol intake frequency: 0-2 drinks per day Substance Use Type: does not use Exam Initial Vital Signs Initial Vital Signs: Vital Signs Temperature 97.6 F 02/01/22 14:42 Pulse Rate 99 H 02/01/22 14:42 Respiratory Rate 16 02/01/22 14:42 Blood Pressure 90/64 02/01/22 14:42 Pulse Oximetry 99 02/01/22 14:42 Oxygen Delivery Method 02/01/22 14:42 Const General: cooperative, comfortable and No ill appearing HENMT Head: normal to inspection and normocephalic Resp Effort & Inspection: normal respiratory effort Auscultation: clear to auscultation bilaterally Cardio Rate: regular rate Rhythm: regular rhythm GI Inspection: normal to inspection Skin General: no rashes or lesions noted Neuro General: patient alert, patient awake, moves all extremities and patient confused Extrem General: normal to inspection and capillary refill normal Course Orders Ordered: ED Orders 02/01/22 14:45 Complete Blood Count AUTO DIFF Stat Comprehensive Metabolic Panel Stat Lipase Stat 02/01/22 14:51 EKG-12 Lead Stat Discontinued Medications Sodium Chloride (Normal Saline 0.9%) 1,000 mls @ 125 mls/hr IV CONT EMMA Last Infusion: 02/01/22 16:37 Dose: 0 mls/hr Documented By: Admin: 02/01/22 15:30 Dose: 125 mls/hr Documented By: DAYRON Vital Signs Vital signs: Vital Signs - 8 hr 02/01/22 14:42 02/01/22 14:53 02/01/22 15:00 Temperature 97.6 F Pulse Rate 99 H 89 94 H Respiratory Rate 16 22 21 Blood Pressure 90/64 104/60 Pulse Oximetry 99 97 98 Oxygen Delivery Method Room Air 02/01/22 15:01 02/01/22 15:01 02/01/22 15:30 Temperature Pulse Rate 83 86 Respiratory Rate 17 19 Blood Pressure 104/60 Pulse Oximetry 98 97 Oxygen Delivery Method 02/01/22 15:38 02/01/22 15:38 02/01/22 16:00 Temperature Pulse Rate 87 90 Respiratory Rate 22 23 Blood Pressure 103/53 L Pulse Oximetry 97 97 Oxygen Delivery Method 02/01/22 16:01 02/01/22 16:01 02/01/22 16:09 Temperature Pulse Rate 88 Respiratory Rate 22 Blood Pressure 95/53 L 95/61 Pulse Oximetry 99 Oxygen Delivery Method 02/01/22 16:09 02/01/22 16:37 Temperature Pulse Rate 90 94 H Respiratory Rate 16 18 Blood Pressure 90/56 L Pulse Oximetry 98 98 Oxygen Delivery Method Medical Decision Making Lab Data Lab results reviewed: Yes I reviewed the patient's lab results. Result diagrams: 02/01/22 14:45 02/01/22 14:45 Labs: Lab Results 02/01/22 02/01/22 Range/Units 14:45 14:45 WBC 6.2 (4.5-11.0) X10^3/uL RBC 5.13 (4.0-5.2) X10^6/uL Hgb 14.8 (12.0-16.0) g/dL Hct 44.4 (36-46) % MCV 86.5 (80-100) fL MCH 28.9 (26-34) PG MCHC 33.4 (30-36) % RDW 14.6 (11.6-14.8) % Plt Count 225 (150-400) X10^3/uL Neut % (Auto) 81.3 H (50-75) % Lymph % (Auto) 8.1 L (25-40) % [place] % (Auto) 7.3 (3-14) % Eos % (Auto) 2.7 (2-4) % Baso % (Auto) 0.6 (0-2) % Neut # (Auto) 5000 (2559-4489) /uL Lymph # (Auto) 500 L (1416-8507) /uL [place] # (Auto) 500 (0-900) /uL Eos # (Auto) 200 (0-450) /uL Baso # (Auto) 0 (0-100) /uL Sodium 140 (137-145) mmol/L Potassium 3.3 L (3.4-5.1) mmol/L Chloride 99 (98-107) mmol/L Carbon Dioxide 29 (22-32) mmol/L BUN 13 (7-17) mg/dL Creatinine 0.88 (0.52-1.04) mg/dL Estimated GFR > 60 (>60) mL/min BUN/Creatinine Ratio 14.8 (6-22) Glucose 150 H (80-110) mg/dL Calcium 9.5 (8.4-10.2) mg/dL Total Bilirubin 1.3 (0.2-1.3) mg/dL AST 57 H (14-36) IU/L ALT 75 H (<35) IU/L Alkaline Phosphatase 124 (38-126) U/L Total Protein 7.7 (6.3-8.2) g/dL Albumin 4.5 (3.5-5.0) g/dL Globulin 3.2 (1.7-4.1) g/dL Albumin/Globulin Ratio 1.4 (1.0-2.8) Lipase 80 (23-300) U/L ECG Data Attestation: I personally reviewed and interpreted this ECG as follows: Interpretation: Atrial fibrillation Ventricular rate 80 Normal axis Normal QRS Normal QTC No ST T wave changes MDM Narrative Medical decision making narrative: Patient is at her baseline mental status which is confused. She has no complaints. No signs of trauma. Is in AFib and this is baseline for her. This does not appear to be a seizure. Not convinced this was TIA. Potentially was vagal given the fact she was just having a bowel movement. No further workup required in the emergency department. and patient were given return precautions. They expressed understanding and agreement. Discharge Plan Departure Patient Disposition: Home Clinical Impression: Syncope Instructions: Fainting Activity Restrictions/Additional Instructions: Recommend that she take all of her medications as directed. Contact her primary provider for a follow-up. Return to the emergency department for any new or worsening symptoms. Prescriptions: No Action donepezil 10 mg tablet 10 mg PO DAILY levothyroxine 75 mcg tablet 75 mcg PO DAILY metoprolol succinate 25 mg tablet extended release 24 hr 25 mg PO DAILY triamterene-hydrochlorothiazid 37.5-25 mg tablet See Rx Instructions .ROUTE .COMPLEX Rx Instructions: she takes i/2 tab daily atorvastatin [Lipitor] 20 mg Tablet 80 mg PO BEDTIME Qty: 90 3RF Pradaxa 75 mg Capsule 150 mg PO BID Qty: 180 3RF Referrals: Mariaelena Julio MD [Primary Care Provider] - Visit Report Forms: Patient Portal/API
[2022-02-01] MEDS: SODIUM CHLORIDE 0.9% 1,000 ML 125 ML IV (15:30)
== END 2022-02-01 16:43 | disposition home or self-care (01) ==
PROVIDERS: Emergency Provider Emergency Medicine; PCP Student in an Organized Health Care Education/Training Program
DX: R55 Syncope and collapse (principal); F03.90 Unspecified dementia, unspecified severity, without behavioral disturbance, psychotic disturbance, mood disturbance, and anxiety; R07.9 Chest pain, unspecified
CPT/HCPCS: 36415; 80053; 83690; 85025; 93005; 99284

== ENCOUNTER → 2022-05-05 14:43 | Outpatient (CLI) | payer OTHER, SELFPAY ==
[2020-01-14 04:52] VITALS: BMI 21.7
--- NOTE | 2022-05-05 | DI.MG.S_ITS ---
BILATERAL DIGITAL SCREENING MAMMOGRAM 3D/2D WITH CAD: 05/05/2022 CLINICAL: Routine screening. Comparison is made to exams dated: 12/04/2020 mammogram, 12/04/2019 mammogram, 12/02/2018 mammogram, and 11/29/2017 mammogram - [facility]. There are scattered areas of fibroglandular density in both breasts (category b / 25%-50% glandular tissue). Current study was also evaluated with a Computer Aided Detection (CAD) system. No significant masses, calcifications, or other findings are seen in either breast. There has been no significant interval change. IMPRESSION: NEGATIVE There is no mammographic evidence of malignancy. A 1 year screening mammogram is recommended. Based on the Tyrer Cuzick model (a risk assessment model) the patient's lifetime risk is 3.9% and her 10 year risk is 2.6%. According to the ACR, ACS, and NCCN guidelines, an annual breast MRI exam along with mammogram is recommended if the patient's lifetime risk is 20% or greater. This exam was interpreted at Station ID: [id number]. NOTE: For mammograms, a report in lay terms will be sent to the patient. Approximately 15% of breast malignancies will not be visualized mammographically. In the management of a palpable breast mass, a negative mammogram must not discourage biopsy of a clinically suspicious lesion. Electronically Signed By: Anthony quinteros/chelsie:05/05/2022 16:14:11 letter sent: Normal Exam ACR BI-RADS Category 1: Negative [id number]
== END ==
PROVIDERS: PCP Student in an Organized Health Care Education/Training Program; Referring Provider Physician Assistant; Visit Provider Physician Assistant
DX: Z12.31 Encounter for screening mammogram for malignant neoplasm of breast (principal)
CPT/HCPCS: 77063; 77067